=== PATIENT | male | born 1955 | race Caucasian/White ===

== ENCOUNTER 2018-07-17 09:19 | Emergency (ER) | payer OTHER, SELFPAY ==
[2018-07-17 09:20] VITALS: BP 172/91; PULSE 73; RESP 18; TEMP 36.8; O2SAT 97; BMI 27.3
--- NOTE | 2018-07-17 09:40 | CT_ITS ---
STUDY: CT CERVICAL SPINE WITHOUT CONTRAST REASON FOR EXAM: Male, 62 years old. Injury RADIATION DOSAGE (If Supplied By Facility): CTDIvol = ( 23.57 ) mGy, DLP = ( 407.56 ) mGycm TECHNIQUE: High resolution transaxial imaging was performed without contrast material. Sagittal and coronal images were reconstructed. Individualized dose optimization techniques were used for this CT. COMPARISON: None FINDINGS: Normal craniovertebral junction. Normal anterior atlantoaxial articulation. Normal odontoid process. Normal cervical lordosis. Normal vertebral bodies and posterior osseous elements. C2-3: Normal endplates. Normal disc height and morphology. Normal central canal and intervertebral neuroforamina. 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 C4-5: Normal endplates. Normal disc height and morphology. Normal central canal and intervertebral neuroforamina. C5-6: Normal endplates. Normal disc height and morphology. Normal central canal and intervertebral neuroforamina. C6-7: There is loss of disc space height with mild endplate spondylosis (image 30/57 sagittal recon). C7-T1: Normal endplates. Normal disc height and morphology. Normal central canal and intervertebral neuroforamina. Normal visualized soft tissue structures. CT/Spine Cervical without Contras IMPRESSION: No fracture No disc herniation or spinal stenosis Electronically Signed: Zackary Mendieta MD at 11:25 EDT Tel , Service support ,
--- NOTE | 2018-07-17 09:40 | CT_ITS ---
STUDY: CT ABDOMEN AND PELVIS WITHOUT CONTRAST REASON FOR EXAM: Male, 62 years old. Abdominal pain after falling off a roof 8 feet on July 16, 2018. The patient also has back pain and dark-colored urine. RADIATION DOSAGE (If Supplied By Facility): CTDIvol = ( 18.58 ) mGy, DLP = ( 1721.13 ) mGycm TECHNIQUE: Transaxial images were obtained from the dome of the diaphragm to the symphysis pubis without oral contrast, and without intravenous contrast. Sagittal and coronal images were reconstructed. Individualized dose optimization techniques were used for this CT. COMPARISON: Prior comparison studies are not available for review at this time. FINDINGS: There is patchy bilateral basilar airspace consolidation possibly representing sequela pulmonary contusion and pulmonary hemorrhage. There may be some atelectasis as well. The visualized heart is mildly enlarged. There is decreased attenuation of the liver consistent with steatosis. Normal gallbladder and extrahepatic biliary system. There is mild splenomegaly. Spleen measures up to 14.8 cm in cephalocaudal dimension. Normal pancreas. Normal bilateral adrenal glands. Right kidney has a well-circumscribed low-attenuation lesion arising from lower pole of the right kidney measuring approximately 2.2 cm in greatest dimension. This has attenuation of approximately 14.3 Hounsfield units consistent with a simple cyst. There is a second a cyst arising from lower pole the right kidney measuring 2.6 cm in greatest dimension. There is a tiny lucency within lower pole of left kidney that may represent a tiny laceration. There is a small hiatal hernia. There is no evidence for dilated bowel, ascites or pneumoperitoneum. Small bowel has a grossly normal appearance. There also still appears to be in the ascending colon. There is gaseous distention of the colon. The descending colon is not distended which gives the appearance of thickened russ as well as the sigmoid colon. Scattered diverticula are visible. The appendix is visualized and appears normal. Normal abdominal aorta. Normal inferior vena cava. Normal retroperitoneum. Normal urinary bladder. Normal visualized prostate gland. There is an umbilical hernia containing fat. There is a left inguinal hernia containing fat. There is moderately severe multilevel thoracic and lumbar spondylosis. There are large bridging osteophytes anterior to the right sacroiliac joint with possible ankylosis. CT/Abdomen/Pelvis W IV Cont ONLY IMPRESSION: 1. Bilateral basilar airspace consolidation and/or atelectasis. Differential considerations include pulmonary contusion and pulmonary hemorrhage. 2. Questionable small left renal laceration of the lower pole. 3. Hepatic steatosis. 4. Mild splenomegaly. 5. Right-sided renal cysts. 6. Colonic diverticulosis. 7. Small hiatal hernia. Electronically Signed: Tabby Rivera MD at 11:48 EDT , Service support ,
--- NOTE | 2018-07-17 09:40 | CT_ITS ---
STUDY: CT CHEST WITH CONTRAST REASON FOR EXAM: Male, 62 years old. Status post fall from 8 foot roof July 16 RADIATION DOSAGE (If Supplied By Facility): CTDIvol = ( 18.58 ) mGy, DLP = ( 1721.13 ) mGycm TECHNIQUE: Transaxial imaging was performed following intravenous administration of 100ML ml of Isovue 300 contrast material. Multiplanar coronal and sagittal images were reformatted. Individualized dose optimization techniques were used for this CT. COMPARISON: CT scan abdomen and pelvis July 17, 2018 FINDINGS: There is a small focus of right lower lobe consolidation. There is a small focus of left lower lobe atelectasis. There is no demonstrated pleural abnormality. There is mild cardiac enlargement. There is trace coronary calcification. Is a nonspecific right-sided paratracheal lymph node measuring 8.8 mm. Normal hilar regions. Normal enhanced pulmonary arteries. Normal aorta arch and descending thoracic aorta. There are multi-level degenerative changes of the thoracic spine. This study extends to the level of approximately T11. There is a well-circumscribed cystic structure within the left hepatic lobe measuring 7.5 mm. There is a small hiatal hernia. Further discussion of the CT scan of the abdomen and pelvis will be provided with a dedicated CT scan of the abdomen and pelvis performed today. There is hepatic steatosis. For Numbering purposes, There are acute fractures of T12-L1 with a transitional vertebral body at L5-S1. There is an acute fracture at the level of L1 with a fracture line seen on image #42 of the axial views coursing along the anterior aspect of the superior endplate with trace loss of height. There is a subtle suggestion of a fracture of the right pedicle on sagittal image #75. There is also a age in determinant step off within the superior aspect of the spinous process at the level of L1. In the left anterior edge of the vertebral body there is a fracture line seen in the level of T12 image #86 sagittal view compatible with a anterior wedge compression fracture. There is a subtle fracture of the right transverse process at L2. CT/Chest WITH Contrast IMPRESSION: There is a small focal right lung base consolidation consider in this setting pulmonary contusion and or potentially atelectasis or early developing infiltrates. Small focus of left lower lobe atelectasis. There is hepatic steatosis. Please refer to CT scan of the abdomen and pelvis or further discussion of the upper abdomen. For Numbering purposes, There are acute fractures of T12-L1 with a transitional vertebral body at L5-S1. There is an acute fracture at the level of L1 with a fracture line seen on image #42 of the axial views coursing along the anterior aspect of the superior endplate with trace loss of height. There is a subtle suggestion of a fracture of the right pedicle on sagittal image #75. There is also a age in determinant step off within the superior aspect of the spinous process at the level of L1. In the left anterior edge of the vertebral body there is a fracture line seen in the level of T12 image #86 sagittal view compatible with a anterior wedge compression fracture. There is a subtle fracture of the right transverse process at L2. Given that the L1 vertebral body may involve 3 columns, recommend follow-up MRI of the thoracolumbar junction to noting that the patient has a transitional type vertebral body. N.B. : The above information has been verbally conveyed by Noemi Mcknight MD to Dr. Nicole MD, on 07/17/2018 12:27:18 (ET). Electronically Signed: Noemi Mcknight MD at 12:17 EDT Tel , Service support ,
--- NOTE | 2018-07-17 09:40 | CT_ITS ---
STUDY: CT BRAIN WITHOUT CONTRAST REASON FOR EXAM: Male, 62 years old. Closed head injury after falling 8 feet off a roof. RADIATION DOSAGE (If Supplied By Facility): CTDIvol = ( 44.99 ) mGy, DLP = ( 863.60 ) mGycm TECHNIQUE: Transaxial CT imaging of the brain was performed without administration of intravenous contrast material. Multiplanar reformations are submitted for interpretation. Individualized dose optimization techniques were used for this CT. COMPARISON: Prior comparison studies are not available for review at this time. FINDINGS: Normal soft tissue structures. Normal calvarium. There is mild cerebral atrophy with widening of the extra-axial spaces and ventricular dilatation. Normal white matter tracts of the cerebral hemispheres. Normal basal ganglia and thalami. Normal brainstem. Normal cerebellum. There is no intracranial hemorrhage. There is minimal atherosclerotic calcification of the intracranial arteries. There is a small left maxillary mucous retention cyst. CT/Brain/Head without Contrast IMPRESSION: No CT evidence of acute intracranial hemorrhage. Electronically Signed: Tabby Rivera MD at 11:37 EDT , Service support ,
[2018-07-17 10:34] LABS: Absolute Lymphocyte Count 0.82 X10^3/ul (0.83-4.51); Absolute Neutrophil Count 10.9 X10^3/uL (2.0-7.7); Basophil# 0.01 X10^3/uL; Basophil% 0.1 % (0-1); Eosinophil# 0.05 X10^3/uL; Eosinophils% 0.4 % (0-5); Hematocrit 44.2 % (40-54); Hemoglobin 14.8 g/dl (13.0-16.5); Lymphocyte # 0.82 X10^3/ul (4.0); Lymphocyte % 6.2 % (19-41); Mean Corp Hgb Conc 33.5 g/gl (32-36); Mean Corpuscular Hgb 30.8 pg (27.0-32.0); Mean Corpuscular Volume 91.9 fL (80-94); Mean Platelet Vol. 9.1 fl (6.2-12.0); Monocyte# 1.33 X10^3/uL; Monocyte% 10.1 % (0-10); Neutrophil # 10.88 X10^3/uL (2.7-7.7); Neutrophil % 82.4 % (47-70); POSITIVE COUNT NO; POSITIVE DIFFERENTIAL NO; POSITIVE MORPHOLOGY NO; Platelet Count 236 K/mm3 (150-450); RBC Distribution Width CV 13.8 % (11.6-14.6); RBC Distribution Width SD 45.8 fl (35.1-43.9); Red Blood Count 4.81 M/mm3 (4.6-6.2); White Blood Count 13.2 K/mm3 (4.4-11.0)
[2018-07-17] MEDS: Morphine 4 MG/ML Syringe IV ×2 (10:37→12:59)
[2018-07-17] MEDS: Ondansetron 4 MG/2 ML Vial IV (10:37)
[2018-07-17 10:40] LABS: Prothrombin Time (Protime)PT. 13.3 SECONDS (11.7-14.9)
[2018-07-17 10:48] LABS: ALB/GLOB Ratio 1.1 RATIO (0.9-2.4); AST(SGOT) 34 U/L (15-37); Alanine Aminotransfer ALT/SGPT 51 U/L (16-61); Albumin, Serum 3.8 g/dL (3.2-5.0); Alkaline Phosphatase 96 U/L (45-117); Anion Gap 6 (5-15); BUN 15 mg/dL (7-18); BUN/Creat Ratio 15.8 RATIO (10-20); Calcium,Total 8.8 mg/dL (8.5-10.1); Chloride 109 mmol/L (98-107); Creatinine, Serum 0.95 mg/dL (0.70-1.30); EST Glomerular Filtration Rate 86 mL/min (>60); Est Glom Filt Rate - Afr Amer 104 mL/min (>60); Globulin 3.6 g/dL (2.2-4.2); Glucose 112 mg/dL (74-106); Potassium 4.2 mmol/L (3.5-5.1); Protein, Total 7.4 g/dL (6.4-8.2); Sodium Level 144 mmol/L (136-145)
[2018-07-17 10:51] LABS: Alcohol, Blood (Medical)-Serum < 3.0 mg/dL
[2018-07-17 12:30] VITALS: BP 160/79; PULSE 65; RESP 18; O2SAT 98
--- NOTE | 2018-07-17 12:37 | ED.RN ---
CALLED [facility] TO TRANSFER PATIENT. DR. DICKERSON SPOKE WITH ED DOC.
--- NOTE | 2018-07-17 12:43 | ED.DCSUM_ITS ---
- ER Visit Summary Date of Service: 07/17/18 Chief Complaint: Fall History of Present Illness: The patient is a 62 M who presents after a fall. Roughly 17 hours before presentation here he fell off of the first story roof. He states that he believes he slipped but does not really remember either before or after. Family member states that they found him laying flat on his back and initially unresponsive. He does admit to 4 beers yesterday. EMS was called and he refused transport. Today he complains of worsening back pain and dark urine so presented here. No urinary retention or fecal incontinence no numbness weakness or tingling in the legs. He denies any chest pain shortness of breath or anterior abdominal pain. Physical Examination: Blood pressure 172/91 vitals otherwise normal Pupils are equally round reactive to light Extra ocular motion intact Neck is nontender Heart regular rate and rhythm Lungs are clear Abdomen soft nontender nondistended Patient does have midline spinal tenderness and paraspinal tenderness of the lower thoracic and upper lumbar regions Active full range of motion ?4 extremities GCS of 15 with no focal or lateralizing neurological deficits normal strength and sensation of the lower extremities with 5 out of 5 dorsiflexion, plantarflexion, extensor hallucis longus Test Results: Labs notable for white count 13.2. Coagulation studies normal. Alcohol negative. CTs of the head and C-spine chest abdomen and pelvis were obtained. These are notable for possible small bilateral pulmonary contusions and there are acute fractures of T12 through L1. There is also a likely small left renal laceration. Emergency Department Course and Treatment: The radiologist spoke to me and put in her report the details of the fractures however she was concerned for possible 3 column fracture of L1 and noted that he will need an MRI to rule out cord injury. He does not have any neurological deficits at this time. Patient was discussed with the emergency physician at [facility] and will be transferred as a trauma. The patient will be placed in spinal immobilization for transport. Although he likely a small bilateral pulmonary contusions his pulse oximetry is normal and he is hemodynamically stable. Treatment Plan: [] Disposition: Transfer Impression: Closed head injury T12 and L1 fractures Renal laceration Bilateral pulmonary contusion This note was generated with [employer] dictation software. It may contain incorrect words, spelling, and punctuation that were not noted in review of the chart prior to signing ED Disposition - Plan for ED Patient: Chief Complaint: Fall Referrals: Care Physician,No Primary [Primary Care Provider] -
[2018-07-17 12:54] VITALS: BP 145/71; PULSE 69; RESP 18; O2SAT 97
[2018-07-17 13:02] VITALS: BP 155/86; PULSE 71; RESP 16; O2SAT 97
== END 2018-07-17 13:34 | disposition short-term general hospital (02) ==
LOC: ED 10:11
PROVIDERS: Emergency Provider Emergency Medicine
DX: S27.322A Contusion of lung, bilateral, initial encounter (principal); S37.032A Laceration of left kidney, unspecified degree, initial encounter; S22.089A Unspecified fracture of T11-T12 vertebra, initial encounter for closed fracture; S32.019A Unspecified fracture of first lumbar vertebra, initial encounter for closed fracture; W13.2XXA Fall from, out of or through roof, initial encounter; Y93.9 Activity, unspecified; Y92.9 Unspecified place or not applicable; Y99.9 Unspecified external cause status
CPT/HCPCS: 70450; 71260; 72125; 74177; 80053; 80320; 85025; 85610; 96374; 96375; 96376; 99282; J7030; Q9967; A4216; G0480; J2405

== ENCOUNTER → 2018-08-30 12:16 | Outpatient (CLI) | payer OTHER, SELFPAY ==
--- NOTE | 2018-08-30 12:20 | CT_ITS ---
STUDY: CT LUMBAR SPINE WITHOUT CONTRAST REASON FOR EXAM: Male, 62 years old. Low back pain and follow-up RADIATION DOSAGE (If Supplied By Facility): CTDIvol = ( 30.00 ) mGy, DLP = ( 989.63 ) mGycm TECHNIQUE: The patient was scanned in a multi detector CT scanner. High resolution transaxial imaging was performed. Images were obtained from T11 to sacrum. Sagittal and coronal images were reconstructed. Individualized dose optimization techniques were used for this CT. COMPARISON: July 17, 2018 CT scan abdomen and pelvis FINDINGS: Normal lumbar lordosis. There is no substantial scoliosis. There is a transitional vertebral body at the level of L5/L6 with a rudimentary disc.. There are 5 lumbar-type vertebral bodies present. On sagittal view if the last or most caudal vertebral body is considered transitional or L6 numbering to match the prior findings is obtained. There is slight chronic-appearing compression at the level of L4. There is a greater compressed appearance of the endplate at the level of L1 when compared to the prior study. There is greater sclerosis and greater vacuum phenomenon. There is a 10% loss of height. At the level of T12 there is persistent loss of height and irregular appearance of the endplate with the least and now 20% loss of height. There is a healing fracture of the right transverse process of L2. There may be a subtle healing fracture of the superior aspect of the spinous process at the level of L1. At T12-L1 there is visualized fracturing of the superior endplate at the level of L1. There is minimal neural foraminal narrowing and no significant central stenosis L1-2: There is bridging osteophytosis. There is no significant neural foramina narrowing to suggest stenosis. L2-3: There is anterior osteophyte formation without neural foramina narrowing suggests stenosis. L3-4: There is anterior osteophyte formation. There is a minimal broad disc bulge without significant neural foramina narrowing or central stenosis. L4-5: There is a minimal broad disc bulge without neural foramina narrowing or central stenosis. L5-S1: There is a minimal broad disc bulge without neural foramina narrowing or central stenosis. There is a rudimentary disc at the transitional vertebral body at S1-S2/L6 S1. Normal visualized paraspinous soft tissue structures. CT/Spine Lumbar without Contrast IMPRESSION: 20% compression at the level of T12. 10% compression at the level of L1. Healing fracture of the right-sided transverse process at L2. Age-indeterminate slight loss of height at L4. . Could consider follow-up MRI if clinically appropriate. Electronically Signed: Noemi Mcknight MD at 19:41 EST Tel , Service support ,
== END ==
DX: S32.010D Wedge compression fracture of first lumbar vertebra, subsequent encounter for fracture with routine healing (principal); X58.XXXD Exposure to other specified factors, subsequent encounter
CPT/HCPCS: 72131

== ENCOUNTER → 2018-10-07 09:37 | Outpatient (CLI) | payer OTHER, SELFPAY ==
--- NOTE | 2018-10-07 09:42 | RAD_ITS ---
STUDY: X-RAY - LUMBAR SPINE REASON FOR EXAM: Male, 63 years old. HX COMPRESSION FX TECHNIQUE: 4 view(s) of the lumbar spine were obtained. COMPARISON: CT dated August 30, 2018 FINDINGS: There is a transitional morphology. Normal lumbar lordosis. There is no demonstrated spondylolisthesis. Again noted are the mild compression fractures at T12, L1 and L4 There is multilevel endplate spondylosis of the lumbar vertebrae. There is multi-level degenerative disc disease with multi-level disc space narrowing. The soft tissue structures are unremarkable. RAD/L/S Spine Bending Flex/Ext IMPRESSION: Stable chronic fractures at T12, L1 and L4 Electronically Signed: Anastasia Lechuga MD at 8:04 EST Tel , Service support ,
--- OUTSIDE RECORDS SUMMARY | 2018-11-23 03:21 | XMS RPT_ITS ---
:1955 Author Organization OHIP Care Team Providers Name Role Phone GOY[place] Attending Unavailable GOYO BAY Referring Unavailable Primay Care Physicia, No Primary Care Unavailable Rosales Rivera Attending Unavailable Primay Care Physicia, No Primary Care Unavailable GOY[place]AY Attending Unavailable GOY[place] BAY Referring Unavailable Primay Care Physicia, No Primary Care Unavailable [place] Consulting Unavailable LEUKHARDT, KHADIJAH H Admitting Unavailable LEUKHARDT, KHADIJAH H Attending Unavailable KHAYYAT, BLANCO F Consulting Unavailable LEUKHARDT, KHADIJAH H Admitting Unavailable LEUKHARDT, KHADIJAH H Attending Unavailable Khayyat, Blanco F. Consulting Unavailable Khayyat, Blanco F. Referring Unavailable PROBLEMS PROBLEMS DATE TYPE CONDITION / CODE ATTENDING STATUS SOURCE 10/07/2018 Unknown S22.080A - [place] Active [facility] T11-T12 vertebra, Repository initial encounter for closed fracture / S22.080A(ICD-10) 08/30/2018 Unknown S32.010D - [place] Active [place] [facility] lumbar vertebra, Repository subsequent encounter for fracture with routine healing / S32.010D(ICD-10) 07/19/2018 Active Unspecified LEUKHARDT, Active [facility] fracture of [facility] unspecified Repository thoracic vertebra, subsequent encounter for fracture with routine healing / S22.009D(ICD-10) 07/17/2018 Active Unspecified LEUKHARDT, Active [facility] fracture of [facility] Other [place] unspecified Repository lumbar vertebra, initial encounter for closed fracture / S32.009A(ICD-10) 07/19/2018 Admitting Unknown / LEUKHARDT, Active [facility] diagnosis UNK(Unknown) [facility] Repository PROCEDURES PROCEDURES No Procedure Records FoundRESULTS RESULTS L/S SPINE BENDING Observed: 10/07/2018 Status: F Source: [place] FLEX/EXT 9:42 AM [facility] REPOSITORY [facility] Imaging Services [address] [place] [address] L/S Spine Bending Flex/Ext MR#: [id number] Acct: [id number] Name: KOSTAGHADA Delia Rep #: [id number] : 1955 63 From: Anastasia Lechuga PCP: Care Physician, No Primary Status: REG CLI Study: L/S Spine Bending Flex/Ext Date of Exam: 10/07/18 Exam# [id number] Ordering Dr: BLANCO MACIAS STUDY: X-RAY - LUMBAR SPINE REASON FOR EXAM: Male, 63 years old. HX COMPRESSION FX TECHNIQUE: 4 view(s) of the lumbar spine were obtained. COMPARISON: CT dated August 30, 2018 FINDINGS: There is a transitional morphology. Normal lumbar lordosis. There is no demonstrated spondylolisthesis. Again noted are the mild compression fractures at T12, L1 and L4 There is multilevel endplate spondylosis of the lumbar vertebrae. There is multi-level degenerative disc disease with multi-level disc space narrowing. The soft tissue structures are unremarkable. RAD/L/S Spine Bending Flex/Ext IMPRESSION: Stable chronic fractures at T12, L1 and L4 Electronically Signed: Anastasia Lechuga MD at 8:04 EST Tel , Service support , CC: No Primary Care Physician; BLANCO MACIAS Sod Stripper: Signed SPINE LUMBAR WITHOUT Observed: 08/30/2018 Status: F Source: [place] CONTRAST 12:20 PM [facility] REPOSITORY [facility] Imaging Services [address] [place] [address] Spine Lumbar without Contrast MR#: [id number] Acct: [id number] Name: GHADA BRAMBILA Rep #: [id number] : 1955 M 62 From: Noemi Mcknight MD PCP: Care Physician, No Primary Status: REG CLI Study: Spine Lumbar without Contrast Date of Exam: 08/30/18 Exam# [id number] Ordering Dr: BLANCO MACIAS STUDY: CT LUMBAR SPINE WITHOUT CONTRAST REASON FOR EXAM: Male, 62 years old. Low back pain and follow-up RADIATION DOSAGE (If Supplied By Facility): CTDIvol = ( 30.00 ) mGy, DLP = ( 989.63 ) mGycm TECHNIQUE: The patient was scanned in a multi detector CT scanner. High resolution transaxial imaging was performed. Images were obtained from T11 to sacrum. Sagittal and coronal images were reconstructed. Individualized dose optimization techniques were used for this CT. COMPARISON: July 17, 2018 CT scan abdomen and pelvis FINDINGS: Normal lumbar lordosis. There is no substantial scoliosis. There is a transitional vertebral body at the level of L5/L6 with a rudimentary disc.. There are 5 lumbar-type vertebral bodies present. On sagittal view if the last or most caudal vertebral body is considered transitional or L6 numbering to match the prior findings is obtained. There is slight chronic-appearing compression at the level of L4. There is a greater compressed appearance of the endplate at the level of L1 when compared to the prior study. There is greater sclerosis and greater vacuum phenomenon. There is a 10% loss of height. At the level of T12 there is persistent loss of height and irregular appearance of the endplate with the least and now 20% loss of height. There is a healing fracture of the right transverse process of L2. There may be a subtle healing fracture of the superior aspect of the spinous process at the level of L1. At T12-L1 there is visualized fracturing of the superior endplate at the level of L1. There is minimal neural foraminal narrowing and no significant central stenosis L1-2: There is bridging osteophytosis. There is no significant neural foramina narrowing to suggest stenosis. L2-3: There is anterior osteophyte formation without neural foramina narrowing suggests stenosis. L3-4: There is anterior osteophyte formation. There is a minimal broad disc bulge without significant neural foramina narrowing or central stenosis. L4-5: There is a minimal broad disc bulge without neural foramina narrowing or central stenosis. L5-S1: There is a minimal broad disc bulge without neural foramina narrowing or central stenosis. There is a rudimentary disc at the transitional vertebral body at S1-S2/L6 S1. Normal visualized paraspinous soft tissue structures. CT/Spine Lumbar without Contrast IMPRESSION: 20% compression at the level of T12. 10% compression at the level of L1. Healing fracture of the right-sided transverse process at L2. Age-indeterminate slight loss of height at L4. . Could consider follow-up MRI if clinically appropriate. Electronically Signed: Noemi Mcknight MD at 19:41 EST Tel , Service support , CC: No Primary Care Physician; BLANCO MACIAS Sod Stripper: Signed CNDS Observed: 07/19/2018 Status: COMPLETED Source: [place] 4:07 PM [facility] OTHER CAMPUS REPOSITORY HNO ID: [id number] Author: Rosales Gibbons (Pa) Service: Trauma Author Type: Physician Raw Stock Dyeing Machine Tender Type: Discharge Summaries Filed: 07/19/2018 4:08 PM Note Text: DISCHARGE SUMMARY PATIENT NAME: Ghada Brambila Code Status: Not on file Highest Readmission Risk Score: 13 The 30 day readmissions risk score is derived from an internally validated risk model which evaluates patient level characteristics, utilization history, medication orders and lab results up until the day of discharge. Patients with a score of 40 or above are considered highest risk for readmission. Specific patient level drivers will be listed at the bottom of the summary. Admission Information Admission Information ADMIT DATE: 07/17/2018 DISCHARGE DATE: 07/19/2018 MY DOCTORS AND MEDICAL TEAM: My Main Hospital Doctor: Khadijah Ovalle Primary Care Provider: No primary care provider on file. My Medical Team Members: Treatment Team: Attending Provider: Khadijah Ovalle MY CONDITION AT DISCHARGE: Stable REASON I WAS IN THE HOSPITAL: Treatment of injuries sustained after a fall off a ladder. SUMMARY OF WHAT HAPPENED WHILE I WAS IN THE HOSPITAL: Patient was seen as a Level II trauma in the ED as a transfer from [facility] on 07/17/18. Patient reportedly had fallen off a ladder the day prior to arrival and initially declined going to the ED despite EMS recommendations. Imaging studies from [facility] were reviewed by the trauma team indicating possible small left kidney laceration and non-displaced fractures of the anterior superior aspect of the T12 vertebrae, superior endplate of L1, R pars interarticularis of T11, right pedicle of T12 and right tranverse process of L2. Patient was admitted to the regular nursing floor for continued monitoring and medical management. Patient was evaluated by the neurosurgery team who recommended non-surgical management of the vertebral fractures. 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 Patient was ordered a TSLO brace for comfort and standing X-Rays were completed after brace fitting which demonstrated stable fractures. Patient was re-evaluated by the neurosurgery team and determined stable for discharge with outpatient follow-up. Patient remained hemodynamically stable during admission. He tolerated a diet and was evaluated by the physical and occupational therapy teams who recommended assistance with a wheeled walker for balance, but ultimately discharge home with self care and exercises as discussed. Patient was seen by the trauma attending surgeon and determined medically stable for discharge home 07/19/2018 with appropriate outpatient follow-ups. OTHER PROBLEMS/DIAGNOSIS: Active Problems: Lumbar compression fracture (HCC) Nicotine use disorder, F17.2 Closed traumatic compression fracture of thoracic vertebra, with routine healing, subsequent encounter Resolved Problems: Fall from ladder OPERATIONS PERFORMED WHILE IN THE HOSPITAL: None IMPORTANT TEST/PROCEDURES: No procedures performed TEST RESULTS NOT AVAILABLE AT THIS TIME: No pending results Discharge Disposition Discharge Disposition: Home With Self Care Activity When You Leave the Hospital Do not bend over at the waist to lift heavy objects May walk with a walker No driving for: Until cleared by the neurosurgeon No exercise for: You may participate in activities as discussed with the physical therapy team. Activity may be advanced per the neurosurgeon's recommendations. No prolonged bedrest, longer than 8 hours in a 24 hour period Diet Instructions Resume your pre-hospital diet For Pain When You Leave the Hospital If you become constipated, you may use any qnmv-paq-kqjtoah treatment such as Milk of Magnesia, Sennakot, Prune Juice, Suppositories, etc. in addition to the stool softener/fiber supplement No alcohol or driving while on pain medication Use acetaminophen (Tylenol) as recommended on the bottle Use the dispensed medication (see prescription) You should use an sqne-qll-edvlmwk stool softener (Docusate sodium) and/or a fiber supplement (Metamucil, Fiber Con) every day while taking prescribed pain medication Call Your Doctor If Other: Go to the ED if you develop worsening back pain, numbness/tingling of the legs or feet, a sensation of weakness in your legs, or loss of bowel or bladder function. You have a severe headache You have lightheadedness, fainting, or confusion You have persistent nausea/vomiting over 24 hours Your temperature is greater than 101F Follow Up Appointments Follow-Up Appointment Neurosurgeon: Please contact the neurosurgeon's office to schedule your follow-up appointment for three weeks following your discharge from the hospital. When: In 3 weeks Patient/Parents to call for appointment?: Yes Blanco Macias [phone] [place] [address] PCP Requested Referral Additional Provider to Provider Information: No notes on file Transitions of Care Critical Issues: NA LABS AND PROCEDURES PENDING AT DISCHARGE: No pending results. FOLLOW-UP APPOINTMENTS ALREADY SCHEDULED WITH A [facility] PROVIDER: No future appointments. ALLERGIES No Known Allergies DISCHARGE MEDICATION: Current Discharge Medication List START taking these medications acetaminophen (TYLENOL) 650 mg Take 650 mg by mouth every 6 hours. oxyCODONE IR (ROXICODONE) 5 mg Take 5 mg by mouth every 6 hours as needed. Earliest Fill Date: 07/19/18 Qty: 16 tablet Refills: 0 Associated Diagnoses:Closed fracture of lumbar vertebra, unspecified fracture morphology, unspecified lumbar vertebral level, initial encounter ([facility]); Closed traumatic compression fracture of thoracic vertebra, with routine healing, subsequent encounter senna (SENOKOT) 8.6 mg Take 8.6 mg by mouth twice daily. methocarbamol (ROBAXIN) 1,000 mg Take 1,000 mg by mouth three times daily. Qty: 21 tablet Refills: 0 See daily progress note for examination findings The patient's risk for 30-day readmission is determined using the following contributing factors: Pt variables contributing to increased readmission risk: 17 Most Recent BUN Result 8.4 First Resulted Calcium During Admission 8 Active Medication Orders 1 Previous ED Visit (6 mos.)? 1 Number of Previous ED Visits (6 mos.) 1 Insurance - Medicare 1 Discharge Disposition - Home 1 Active Anticoagulant TIME OF CARE: Discharge Management: I personally spent less than 30 minutes involved in the discharge management of this patient. SIGNATURE: Rosales Gibbons PA-C PAGER/CONTACT #: DATE: July 19, 2018 TIME: 4:07 PM THERAPY NT Observed: 07/19/2018 Status: COMPLETED Source: [place] 1:46 PM CLINIC OTHER CAMPUS REPOSITORY O ID: [id number] Author: Radha Diaz Service: Physical Therapy Author Type: Tax Expert Type: Therapy (PT/OT/Speech/Resp) Filed: 07/19/2018 1:55 PM Note Text: Attestation signed by Melanie Heath PT at 07/19/2018 3:28 PM I reviewed and agree with the documentation corresponding to this therapy visit. SIGNATURE: Melanie Heath PT DATE: July 19, 2018 TIME: 3:28 PM Physical Therapy Treatment SERVICE DATE: 07/19/2018 SERVICE TIME: 1315 to 1340 ROOM: [place] [address] Recommended Discharge Disposition: Home Anticipated Discharge Needs: Physical Assist at Home;Supervision at Home;Equipment Physical Assist at Home for: Cleaning;Laundry;Meals;Transportation;Shopping;Self Care Supervision at Home due to: (medical status change) Recommended Discharge Equipment: Wheeled Walker PT Recommendations to Nursing: Ambulate with device;To bathroom;In halls;With assist of 1 person Device: Brace;Wheeled Walker PT 6 Clicks Score: 23 Precautions/Activity Restrictions: Fall Risk;Spine;Brace Precaution/Activity Restriction Comments: TLSO Isolation Type: None ASSESSMENT : Patient Disposition at Start of Session: Supine in Bed;Call Goff in Reach;Family Present Patient Disposition at End of Session: Supine in Bed;Call Goff in Reach;Family Present Tolerated Full Session Patient made improvement this session with all aspects of mobility. Patient and spouse voiced good understanding of spine precautions, TLSO brace and mobility task. Reports that they will need a wheel walker for discharge to home. Physical Therapy Problem List: Education Deficit;Pain;Safety Deficits;Impaired Self Care;Decreased Activity Tolerance;Decreased Range Of Motion;Decreased Strength;Functional Mobility Impairment;Balance Impaired Patient /Caregiver Goals: Go Home;Walk Goals for Plan of Care: Able to perform HEP with: Set Up (3 x 10 LE exercises) Rolling with: Modified Independent Transfer supine to/from sit with: Modified Independent Transfer sit to/from stand with: Modified Independent Ambulate with: Modified Independent Distance: 50' intervals Device: Wheeled Walker Ambulate up and down steps with: Supervision Number of steps: 1 platform step Device: (using FWW) Transfer: stand-pivot with mod I Progress Toward Goals: Progressing as expected Rehab Potential: Good PLAN: Treatment Frequency (times per week): 7 (3-7) Current admission Treatment Interventions: Education;Self Care / Home Management;Strengthening;Functional Mobility Training;Balance Training;Modalities;Orthotic Management and Training Modalities: Ice Plan of Care developed with: Patient;Family TREATMENT INTERVENTIONS: Therapy Diagnosis: Difficulty walking-musculoskeletal;Unsteadiness on feet Interventions Provided: Therapeutic Activity (43601);Gait Training (64215) Therapeutic Activity (17917) Treatment Minutes: 15 1 unit Skilled Intervention(s): Instructed patient in log roll technique, Instructed patient in supine to and from sit pushing with upper extremities to sit up from flat surface. Movement is slow with cues to avoid twisting. Instruction in sit to and from stand technique with proper hand placement and body positioning at edge of bed. Patient completed 2 trials with emphasis on proper hand placement and eccentric control. Education with spine precautions (no bending, lifting restriction, no twisting) and don/doff of TLSO brace. Patient requires min assist and cues to proper alignment of brace. Spouse present and observed with brace, denied need to practice. Gait Training (36000) Treatment Minutes: 10 1 unit Skilled Intervention(s): Instruction in sequencing, gait pattern, Instruction in correction of gait deviations. Patient ambulates with slow pace, with decrease in foot clearance and stride length. Patient with buckling of knees 2x's due to spasms but able to self-correct. Instruction in stair negotiation: using step to pattern with rails. Curbstep using wheel walker with step to pattern. Cues to get closer to edge of step before going up or down step. Total Timed Code Treatment Minutes: 25 Total Treatment Time (minutes): 25 SUBJECTIVE: Current Hospital Course: Chart reviewed and no significant medical updates relevant to therapy were noted Reason for Physical Therapy Consult : PT eval AND treat, ambulate in TLSO Relevant Past Medical History: fall from ladder, spine fx's Patient Report: Denied increase in pain voiced no new complaints. Home Environment Patient Lives With: Significant Other (several family members present on eval, very supportive) Assistance Available: 24 Hour Entry To Home: Stairs;Without Rail (platform steps) Number Of Stairs Into Home: 3 (platform steps) Number Of Stairs To Bed/Bath: 0 Tub/Shower Type: tub/shower Laundry: main floor Equipment Owned: (None) Prior Functional Level: Within Functional Limits (indep, working, driving, active, denies prior falls) OBJECTIVE: CURRENT FUNCTIONAL STATUS: Current Functional Mobility Assist Level Additional Information Rolling Stand By Assistance Supine to Sit Stand By Assistance Sit to Supine Stand By Assistance Scooting Stand By Assistance Sit to Stand Stand By Assistance Stand to Sit Stand By Assistance Bed to Chair Toilet/Commode Gait Stand By Assistance Gait Device: Wheeled Walker Gait Distance (feet): intervals of 50-60ft Stairs Contact Guard Assistance Stairs Device: Rail Number of Stairs: 4 Curb Step Contact Guard Assistance Wheeled Walker Car Transfer General Gait Deviations: Dara decreased;Flexed trunk posture;Step length decreased;Narrow Base of Support ((+) LE buckling, heavy support needed using UEs on device) Balance: Static Standing;Dynamic Standing Static Standing Balance: Stand By Assistance Dynamic Standing Balance: Minimal Assistance Please see discipline specific clinical documentation flowsheet for complete details for this therapy evaluation/treatment. SIGNATURE: Radha Diaz PTA PATIENT NAME: Ghada Brambila DATE: July 19, 2018 TIME: 1:46 PM PROGRESS Observed: 07/19/2018 Status: COMPLETED Source: [place] 1:37 PM CLINIC OTHER [place] REPOSITORY HNO ID: [id number] Author: HILARIO Franco (Pa) Service: Neurosurgery Author Type: Physician Raw Stock Dyeing Machine Tender Type: Progress Notes Filed: 07/19/2018 1:40 PM Note Text: Pt now with brace. Feels like it's helping. Pain controlled. Ambulating, voiding and eating. msp grossly intact Wear brace when at all times but to sleep Ok to d/c by neurosurg standpoint F/u in 3 wks with HILARIO Laurent PROGRESS Observed: 07/19/2018 Status: COMPLETED Source: [place] 11:45 AM CLINIC OTHER [place] REPOSITORY HNO ID: [id number] Author: Rosales Gibbons (Pa) Service: Trauma Author Type: Physician Raw Stock Dyeing Machine Tender Type: Progress Notes Filed: 07/19/2018 12:06 PM Note Text: Trauma Surgery Progress Note SERVICE DATE: 07/19/2018 SUBJECTIVE: Patient doing well this am. Pain controlled. Tolerating diet. Wearing TSLO brace. Notes that he has gotten up a few times with minimal back discomfort, just notes feeling a little off balance at first. Denies numbness or tingling of the lower extremities. Denies CP, SOB, abdominal pain, N/V. Tolerating diet. Tolerating diet DIET REGULAR Nausea Yes Emesis No Flatus Yes Bowel movement No Pain Controlled Yes Ambulating Yes OBJECTIVE: Vitals: Temp (24hrs), Av.8 ?C (98.2 ?F), Min:36.4 ?C (97.5 ?F), Max:37.4 ?C (99.3 ?F) BP 152/77 Pulse 73 Temp 36.8 ?C (98.2 ?F) (Temporal Artery) Resp 16 Ht 172.7 cm (5' 8) Wt 76 kg (167 lb 8.8 oz) SpO2 96% BMI 25.48 kg/m? O2 Therapy: Room Air IANDO: Date 07/18/18699 - 07/19/18 0659 07/19/18699 - 07/20/18 0659 Shift 5685-5983 2579-2823 9214-5598 24 Hour Total 1485-5552 8374-5230 4435-3489 24 Hour Total I N T A K E PO 580 360 940 PO 580 360 940 Shift Total 580 360 940 O U T P U T Urine 1 1 325 327 Void (ml) 325 325 Urine Not Saved 1 1 2 Shift Total 1 1 325 327 Weight (kg) 76 76 76 76 76 76 76 76 MEDICATIONS Current Facility-Administered Medications: senna 8.6 mg tab(s) (SENOKOT) 8.6 mg ORAL BID morphine 2-4 mg injection 2-4 mg INTRAVENOUS q 2 H PRN docusate sodium 100 mg cap(s) (COLACE) 100 mg ORAL BID enoxaparin 30 mg injection (LOVENOX) 30 mg SUBCUTANEOUS q 12 H 0.9% NaCl 2-10 mL 2-10 mL INTRAVENOUS q 12 H methocarbamol 1,000 mg tab(s) (ROBAXIN) 1,000 mg ORAL TID acetaminophen 975 mg tab(s) (TYLENOL) 975 mg ORAL q 6 H oxyCODONE IR 5-10 mg tab(s) (ROXICODONE) 5-10 mg ORAL q 4 H PRN Labs: Recent Labs 07/18/18 0300 NA 139 K 3.7 CHLOR 107 CO2 27 BUN 17 CREAT 1.07 GLUC 101* ANION 9 CA 8.4* WBC 15.69* HB 13.8 HCT 41.4 PLT 240 Exam: GENERAL: No distress, Alert; Not appearing toxic, septic, ill or diaphoretic. NEURO: AANDOx3, Light touch sensation grossly intact in all extremities. HEENT: normocephalic, atraumatic LUNGS: Unlabored breathing on RA. Lungs CTAB. No harsh breath sounds. CARDIAC: Regular rate and rhythm as above. B/L radial and DP pulses 2+. ABDOMEN: Soft, non-tender, non-distended. Normoactive bowel sounds in all quadrants. No guarding or masses. EXTREMITIES: MEDELLIN, No deformities, No edema. Motor strength intact and symmetric in extremities x 4. SKIN: Skin color, texture, turgor normal, No rashes or lesions ASSESSMENT AND PLAN: Active Hospital Problems Diagnosis Date Noted - Nicotine use disorder, F17.2 07/18/2018 - Fall from ladder 07/17/2018 - Lumbar compression fracture (HCC) 07/17/2018 62 year old male s/p fall from ladder with compression fractures of superior endplates of T12 and L1 as well as chip fracture of L2 spinous process, undisplaced fracture of right pars interarticularis of T11, undisplaced fx of R T12 pedicle, nondisplaced L2 TP fx (per MRI completed 07/18/18 - 13 thoracic-type vertebrae, mild acture compression fxs T12, T13, and L3, incidental 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 - TSLO brace obtained and patient wearing - Standing L-spine X-Rays - await radiology interpretation and final NSGY recs. - Dispo: PT/OT recommending home (possibly with home PT). CM following Rosales Gibbons PA-C 07/19/2018 12:06 PM SIGNATURE: Rosales Gibbons PA-C PATIENT NAME: Ghada Brambila DATE: July 19, 2018 TIME: 12:06 AM Pager: [phone] LUMBOSACRAL SPINE 2 OR Observed: 07/19/2018 Status: F Source: [facility] 3 VIEWS 10:54 AM HEALTH SYSTEM REPOSITORY Performed at [facility] APPROVED BY: Byron Eckert MD EXAM TITLE: LUMBOSACRAL SPINE 2 OR 3 VIEWS DATE: 07/19/2018 10:45 INDICATION: Status post trauma with T12, T 13 (patient has 13 thoracic type vertebral bodies), and the L3 fracture. COMPARISON: MRI dated 07/18/2018. AP and sitting upright view of the lumbar spine show mild compression deformity superior endplates of T12, T 13, and superior endplate of L3 similar to prior MRI. Vertebral body heights are otherwise maintained. Narrowing of intervertebral disc space at the level of T11- 12 and T12 -T13 and T13-L1. IMPRESSION: Status post compression deformities in the lower thoracic and lumbar spine. THERAPY NT Observed: 07/19/2018 Status: COMPLETED Source: [place] 10:32 AM [facility] OTHER CAMPUS REPOSITORY HNO ID: [id number] Author: Radha Diaz Service: Physical Therapy Author Type: Tax Expert Type: Therapy (PT/OT/Speech/Resp) Filed: 07/19/2018 10:32 AM Note Text: Attestation signed by Melanie Heath PT at 07/19/2018 10:50 AM I reviewed and agree with the documentation corresponding to this therapy visit. SIGNATURE: Melanie Heath PT DATE: July 19, 2018 TIME: 10:50 AM PHYSICAL THERAPY MISSED VISIT SERVICE DATE: 07/19/2018 SERVICE TIME: 1030 to 1030 ROOM: [id number] Attempted Treatment. Patient not seen due to Test/Procedure. SIGNATURE: Radha Diaz PTA PATIENT NAME: Ghada Brambila DATE: July 19, 2018 TIME: 10:32 AM PLAN OF CARE Observed: 07/19/2018 Status: COMPLETED Source: [place] 9:39 AM [facility] OTHER CAMPUS REPOSITORY HNO ID: [id number] Author: Rona Mc (Instrument Shop Supervisor) Service: (none) Author Type: (none) Type: Plan of Care Filed: 07/19/2018 9:40 AM Note Text: TAIL TRIMMER BEDSIDE DELIVERY SURVEY 1. Patient to use [facility] Bedside Delivery - YES 2. If fax, patient would like us to fax prescriptions to Pharmacy of choice a. Pharmacy: b. Location: c. Phone: 3. Insurance card on file - YES 4. Credit card for payment - N/A No prescriptions yet. Please call Rona robertson [phone] or [phone] upon discharge. THERAPY NT Observed: 07/19/2018 Status: COMPLETED Source: [place] 9:26 AM [facility] OTHER CAMP[facility] REPOSITORY HNO ID: [id number] Author: Brandie MaosnOtr/Julita De La Rosa Service: Occupational Therapy Author Type: Occupational Therapist Type: Therapy (PT/OT/Speech/Resp) Filed: 07/19/2018 9:35 AM Note Text: Occupational Therapy Evaluation SERVICE DATE: 07/19/2018 SERVICE TIME: 823 to 853 ROOM: [place] [address] Recommended Discharge Disposition: Home Recommended Discharge Disposition Comments: Increased assist from as needed Anticipated Discharge Needs: Physical Assist at Home;Supervision at Home;Equipment Physical Assist at Home for: Cleaning;Laundry;Meals;Transportation;Shopping;Self Care Supervision at Home due to: (medical status change) Recommended Discharge Equipment: Microfilm Operator;Long Handled Sponge;Shower Chair OT Recommendations to Nursing: To Bathroom for ADL?s /and or Toileting;With assist of 1 person Equipment: Wheeled Walker OT 6 Clicks Score: 20 Precautions/Activity Restrictions: Fall Risk;Spine;Brace Precaution/Activity Restriction Comments: TLSO Isolation Type: None ASSESSMENT: OT Evaluation Low Complexity: Occupational Profile - Brief review of patient's medical record completed (please see current hospital course of evaluation). Occupational Performance - Pt presents with deficits in LE bathing/dressing, functional transfers, functional mobility, decreased safety awareness, Complexity in Clinical Decision Making - The extent of clinical reasoning was low, number of treatment options limited, no need for modifications during the evaluation process, no comorbidities present to affect patient's occupational performance. Patient Disposition at Start of Session: Family Present (on EOB) Patient Disposition at End of Session: Family Present (EOB) Tolerated Full Session Occupational Therapy Problem List: Education Deficit;Safety Deficits;Impaired Self Care;Functional Mobility Impairment Patient /Caregiver Goals: Go Home Goals for Plan of Care: Lower Body Bathing with: Modified Independent Lower Body Dressing with: Modified Independent Tolerate (minutes of functional activity): 20 Functional Activity with: Supervision Additional Goal 1: Pt to demo/recall BLT precautions with ADLs without cues Additional Goal 2: Pt to demo don/doff brace without assist or cues Transfer: Pt to demo safe ww transfers without cues Rehab Potential: Excellent PLAN: Treatment Frequency (times per week): 5 (2-5) Current admission Treatment Interventions: Education;Self Care / Home Management;Functional Mobility Training Plan of Care developed with: Patient;Family TREATMENT INTERVENTIONS: Therapy Diagnosis: Decreased activities of daily living (ADL);Unsteadiness on feet;Signs and Symptoms Involving Cognitive Functions and Awareness;Reduced mobility-other Interventions Provided: Evaluation;Self Senior Living Management (09085) $ Evaluation-Low (62702) Billed Units: 1 unit Self Senior Living Management (89199) Treatment Minutes: 12 1 unit Skilled Intervention(s): Educated patient on BLT precautions to protect spine with ADLs / IADLs. Discussed how techniques apply to pt's individual situation/needs and provided handout. Pt educated / practices lower body dressing of shorts and don/doff socks strategies with adaptive equipment of gun number and sock aide requiring cues, assist, reminders on back precautions. Demonstrated tub seat transfer/car transfer in room. Edu on where to obtain adaptive equipment. Edu on walker bag benefits. Reinforced hand placement with walker transfers. Edu/practiced don/doff soft TLSO. Edu pt and communicated on whiteboard mobility level 3 A x1 with walker. Total Timed Code Treatment Minutes: 12 Total Treatment Time (minutes): 30 FUNCTIONAL G CODE: OT 6 Clicks Score: 20 (07/19/18823) Self Care Current Status (G8987): CJ (07/19/18823) Self Care Goal Status (G8988): CI (07/19/18 1223) Based on clinical assessment and the score on the 6 Clicks Functional Assessment Tool, the G code and corresponding severity modifiers are documented above. SUBJECTIVE: Current Hospital Course: Chart reviewed; Patient is a 62-year-old male who presents after fall. Patient was working near his home on a ladder and fell off landing on his back yesterday. He was found by his who reported hearing the fall and finding the patient face down and unconscious. She states he was unconscious for approx 2-3 minutes. Patient was able to ambulate without difficulty however noted progressive back pain. Patient transferred [facility] Injuries: compression fractures of superior endplates of T12 and L1 as well as chip fracture of L2 spinous process, undisplaced fracture of right pars interarticularis of T11, undisplaced fx of R T12 pedicle, nondisplaced L2 TP fx Per Neurosx no surgical intervention, ordered soft TLSO for pt. Active Hospital Problems Diagnosis - Nicotine use disorder, F17.2 - Fall from ladder - Lumbar compression fracture (HCC) No past medical history on file. No past surgical history on file. Reason for Occupational Therapy Consult: Progressive mobility protocol Relevant Past Medical History: none Patient Report: Pt in room with present, sitting edge of bed I want to get up and walk around Pain: 8/10 with spasm in his back, otherwise 5/10 Home Environment Patient Lives With: Significant Other (several family members present on eval, very supportive) Assistance Available: 24 Hour Entry To Home: Stairs;Without Rail (platform steps) Number Of Stairs Into Home: 3 (platform steps) Number Of Stairs To Bed/Bath: 0 Tub/Shower Type: tub/shower Laundry: main floor Equipment Owned: (None) Prior Functional Level: Within Functional Limits (indep, working, driving, active, denies prior falls) OBJECTIVE: Responsiveness: Alert;Awake Follows Commands: 1-step Commands Memory Deficits: Short Term (3/3) Executive Function Deficits: Safety Awareness;Judgement Safety Awareness Deficit: Minimal impairment Judgement Deficit: Minimal impairment CURRENT FUNCTIONAL STATUS: Current Activities of Daily Living Assist Level Feeding Independent Grooming Contact Guard Assistance (standing at sink) Bathing Upper Body Minimal Assistance Bathing Lower Body Minimal Assistance Dressing Upper Body Stand By Assistance Dressing Lower Body Minimal Assistance Toileting Minimal Assistance Functional Mobility Assist Level Rolling Supine to Sit Sit to Supine Scooting Sit to Stand Minimal Assistance Stand to Sit Bed to Chair Toilet/Commode Contact Guard Assistance Functional Mobility Contact Guard Assistance Wheeled Walker Range of Motion: WFL (with functional activity) Strength: WFL (with functional activity in room) Edu pt on fall prevention / up with assistance. Pt left in room on EOB with calllight within reach. Please see discipline specific clinical documentation flowsheet for complete details for this therapy evaluation/treatment. SIGNATURE: Brandie De La Rosa OTR/Leticia PATIENT NAME: Ghada Brambila DATE: July 19, 2018 TIME: 9:26 AM CASE MGT INIT Observed: 07/19/2018 Status: COMPLETED Source: [facility] 8:52 AM CLINIC OTHER CAMPUS REPOSITORY HNO ID: [id number] Author: Keri (Rn) NAS Thurston Service: Care Management Author Type: Registered Nurse Type: Care Mgt Initial Assessment Filed: 07/19/2018 8:58 AM Note Text: CARE MANAGEMENT: ASSESSMENT AND DISCHARGE PLAN SERVICE DATE: 07/19/2018 SERVICE TIME: 8:54 AM PRIMARY CARE PHYSICIAN: No primary care provider on file. Phone: None ADMISSION STATUS: Inpatient Needs Prior to Discharge: Equipment Delivery MEDICAL: Patient/Tip Tester Stated Goals: To have reduction in pain To have reduction in symptoms Health Insurance: [employer] PLAN PREFERRED HEALTH CHOICE [place] [employer] Health Issues Impacting Discharge Plan: Newly diagnosed lumbar fracture Last Admission Date: none Is this Within the Past 30 days? No Advance Directive: Current Advance Directive: None Opener Verifier [employer] Attempted to Assist with AD Completion: Yes Action: Patient Unwilling Health Literacy: 1. How often do you need to have someone help you when you read instructions, pamphlets, or other written material from your doctor or pharmacy? Never - 1 2. How confident are you filling out medical forms by yourself? Extremely - 1 If Patient scores > 3 on either question, the following interventions were put into place: Patient did not score > 3 FUNCTIONAL AND COGNITIVE/BEHAVIORAL PRIOR TO ADMISSION: Baseline Mental Status: Alert AND Oriented, Person, Place , Time and Situation Functional Status: Independent Does Patient Currently Receive Any Community Services or Home Care? None Equipment Prior to Admission: None Has the Patient Been in a Care Home Facility in the Past 30 days? No SOCIAL: Living Arrangement: Home Lives With: Spouse Financial Resources: Employed: . Primary Contact: Extended Emergency Contact Information Primary Emergency Contact: Sera Brambila Mobile Relation: Spouse Supportive: Yes Other Important Patient Contacts: None Caregiver Assessment: Caregiver is ready, willing and able to meet the patient's needs as recommended by the inter-professional team? No Caregiver Needed Patient's transition needs and plan for meeting these needs: 2 Does the patient have an acute stroke diagnosis, or has the patient had a stroke during this admission? No Medication Adherence: I am convinced of the importance of my prescription medication: Agree completely - 0 I worry that my prescription medication will do more harm than good to me Disagree completely - 0 I feel financially burdened by my [id number] expenses for my prescription medication: Disagree completely - 0 Patient is categorized as low risk < 2 Are you interested in bedside delivery of your medications? Yes Food Concerns: In the Last Month, Have You had Trouble Getting Food? No trouble getting food During the Last Month, Have You Worried Whether Your Food Would Run Out Before You Had Enough Money to Buy More? No Is the Patient Psychosocially Complex? No ASSESSMENT AND PLAN: Medical Needs: None Psychosocial Needs: None FREEDOM OF CHOICE EXPLAINED: Yes explained to patient POTENTIAL TRANSITION PLANS Durable Medical Equipment Chart reviewed. Met with patient at bedside. Patient from home with , independent INSTRUMENT AND ELECTRICAL TECHNICIAN. Denies dme. Does not have pcp. PT.OT kyaw completed recommending home with home care, may need to do outpatient therapy as patient lives in [facility]. Will speak with therapy. Patient needs wheeled walker. Script on chart, referral sent awaiting signature. Will follow. SIGNATURE: Keri Thurston RN PATIENT NAME: Ghada Brambila DATE: July 19, 2018 TIME: 8:53 AM PAGER/CONTACT #: [phone] THERAPY NT Observed: 07/18/2018 Status: COMPLETED Source: [place] 5:18 PM CLINIC OTHER CAMPUS REPOSITORY HNO ID: [id number] Author: Kenisha Stevenson Service: Physical Therapy Author Type: Physical Therapist Type: Therapy (PT/OT/Speech/Resp) Filed: 07/18/2018 5:35 PM Note Text: Physical Therapy Evaluation SERVICE DATE: 07/18/2018 SERVICE TIME: 1510 to 1550 ROOM: [place] [address] Recommended Discharge Disposition: Home PT Anticipated Discharge Needs: Physical Assist at Home;Equipment Physical Assist at Home for: Transportation;Stairs;Laundry;Cleaning;Meals;Shopping;Self Care;Safety Recommended Discharge Equipment: Wheeled Walker PT Recommendations to Nursing: Ambulate with device;To bathroom;In halls;With assist of 1 person Device: Brace;Wheeled Walker PT 6 Clicks Score: 17 Precautions/Activity Restrictions: Fall Risk;Spine;Brace Precaution/Activity Restriction Comments: TLSO Isolation Type: None ASSESSMENT : Patient presents with personal factors, comorbidities and results of the PT examination that require moderate complexity decision making. The patient requires skilled physical therapy to address multiple PT problems in order for the patient to return to a baseline functional level. Patient Disposition at Start of Session: Supine in Bed;Family Present;Call Goff in Reach Patient Disposition at End of Session: Supine in Bed;Call Goff in Reach;Family Present Tolerated Full Session Physical Therapy Problem List: Education Deficit;Pain;Safety Deficits;Impaired Self Care;Decreased Activity Tolerance;Decreased Range Of Motion;Decreased Strength;Functional Mobility Impairment;Balance Impaired Patient /Caregiver Goals: Go Home;Walk Goals for Plan of Care: Able to perform HEP with: Set Up (3 x 10 LE exercises) Rolling with: Modified Independent Transfer supine to/from sit with: Modified Independent Transfer sit to/from stand with: Modified Independent Ambulate with: Modified Independent Distance: 50' intervals Device: Wheeled Walker Ambulate up and down steps with: Supervision Number of steps: 1 platform step Device: (using FWW) Transfer: stand-pivot with mod I Rehab Potential: Good PLAN: Treatment Frequency (times per week): 7 (3-7) Current admission Treatment Interventions: Education;Self Care / Home Management;Strengthening;Functional Mobility Training;Balance Training;Modalities;Orthotic Management and Training Modalities: Ice Plan of Care developed with: Patient;Family TREATMENT INTERVENTIONS: Therapy Diagnosis: Difficulty walking-musculoskeletal;Unsteadiness on feet Interventions Provided: Evaluation;Therapeutic Activity (14840);Gait Training (47801) $ Evaluation-Moderate (98053) Billed Units: 1 unit Therapeutic Activity (83731) Treatment Minutes: 13 1 unit Skilled Intervention(s): Functional mobility performed as described below; pt wearing TLSO brace throughout. Pt / family ed re: spine precautions. Instructed patient in log roll technique, with extra time needed to adjust to positional changes. Instruction in sit to and from stand technique with proper hand placement and body positioning at edge of bed/chair (x multiple reps, including at EOB and raised commode with use of grab bars). Time spent with pt AND family discussing: role of PT, goals/POC, DME, d/c planning -- supportive family, reports able to assist 24/ at home; walker needed for ambulation. Gait Training (93963) Treatment Minutes: 10 1 unit Skilled Intervention(s): (+) LE buckling x several episodes with standing and gait -- due to intermittent shooting back pains per pt report. Instructed upright posture in standing with FWW. Instructed safe use of FWW with amb, doretha keeping frame close with use of UEs needed to support LE instability. Also pt/family ed re: safe guarding/assisting technique - verbalized understanding and performed successful return demo. Total Timed Code Treatment Minutes: 23 Total Treatment Time (minutes): 40 FUNCTIONAL G CODE: PT 6 Clicks Score: 17 (07/18/18 1510) Mobility: Walking and Moving Around Current Status (G8978): CK (07/18/18 1510) Mobility: Walking and Moving Around Goal Status (G8979): CJ (07/18/18 1510) Based on clinical assessment and the score on the 6 Clicks Functional Assessment Tool, the G code and corresponding severity modifiers are documented above. SUBJECTIVE: Current Hospital Course: Chart reviewed; pt is a 62 year old male who presents to [facility] as a Level 2 trauma after a fall from a ladder 1 day ago. He was originally assessed by EMS who recommended that the patient go to the ED but the patient declined. He then presented to [facility] for continued/worsening pain, then transferred to [facility] after finding a T12/L1 fx and renal laceration on CT. Pt complains of pain in his thoracic and lumbar spine. He was found by his who reported hearing the fall and finding the patient face down and unconscious. She states he was unconscious for approx 2-3 minutes. The pt denies any other injuries, denies LOC and denies the use of any blood thinners. GCS at Scene was 15. IMAGING: -bilaterall basilar airspace consolidation and or atelectasis, pulmonary contusion vs pulmonary hemorrhage -Questionable small L renal laceration of lower pole -hepatic steatosis -mild splenomegaly -right sided renal cysts -colonic diverticulosis -small hiatal hernia -non-displaced fracture of the anterior superior aspect of T12 -nondisplaced fracture of the superior endplate of L1 -nondisplaced fracture of the R pars interarticularis of T11 -Undisplaced fracture of the right pedicle of T12 -nondisplaced fracture of the right transverse process of L2 Non-op per neurosurgery. TLSO brace ordered; Ambulate and plain films after brace obtained. Active Hospital Problems Diagnosis - Nicotine use disorder, F17.2 - Fall from ladder - Lumbar compression fracture (HCC) Reason for Physical Therapy Consult : PT eval AND treat, ambulate in TLSO Relevant Past Medical History: fall from ladder, spine fx's Patient Report: pain not bad at rest, increases with movement; agreeable to PT and requests to use bathroom. Home Environment Patient Lives With: Significant Other (several family members present on eval, very supportive) Assistance Available: 24 Hour Entry To Home: Stairs;Without Rail (platform steps) Number Of Stairs Into Home: 3 (platform steps) Number Of Stairs To Bed/Bath: 0 Equipment Owned: (None) Prior Functional Level: Within Functional Limits (indep, working, driving, active, denies prior falls) OBJECTIVE: Range of Motion: WFL Except (painful, (+) guarding) Strength: Lower Extremity Comments (grossly 4 to 4+/5) Tone Abnormalities: (tone WNL) CURRENT FUNCTIONAL STATUS: Current Functional Mobility Assist Level Additional Information Rolling Minimal Assistance Supine to Sit Minimal Assistance Sit to Supine Minimal Assistance Scooting Stand By Assistance Sit to Stand Contact Guard Assistance Stand to Sit Contact Guard Assistance Bed to Chair Toilet/Commode Contact Guard Assistance Gait Contact Guard Assistance Gait Device: Wheeled Walker Gait Distance (feet): 30' x 1, 20' x 1, 10' x 1 (included stop at bathroom) Stairs Curb Step Car Transfer General Gait Deviations: Dara decreased;Flexed trunk posture;Step length decreased;Narrow Base of Support ((+) LE buckling, heavy support needed using UEs on device) Balance: Static Standing;Dynamic Standing Static Standing Balance: Stand By Assistance Dynamic Standing Balance: Minimal Assistance Please see discipline specific clinical documentation flowsheet for complete details for this therapy evaluation/treatment. SIGNATURE: Kenisha Stevenson PT PATIENT NAME: Ghada Brambila DATE: July 18, 2018 TIME: 5:18 PM MRI THORACIC SPINE Observed: 07/18/2018 Status: F Source: Immediately W/O CONTRAST 10:03 AM HEALTH SYSTEM REPOSITORY Performed at [facility] APPROVED BY: Manoj Garcia MD THORACIC SPINE MRI WITHOUT CONTRAST ENHANCEMENT LUMBOSACRAL SPINE MRI WITHOUT CONTRAST ENHANCEMENT Serial images of the thoracic and lumbosacral portions of the spine were obtained in the sagittal plane with T1W, T2*weighting, T2W, and with a STIR sequence and in the transverse plane with T1W and T2W . The study was technically limited due to artifact arising from patient motion and was performed to evaluate traumatic injury. Serial images demonstrate the presence of thirteen (13) thoracic- type rib-bearing vertebrae. Serial images demonstrate the presence of relatively mild compression fractures involving the T12, T 13, and L3 vertebral bodies. Abnormal signal intensity is identified subjacent to the depressed supe rior endplates at each level, decreased with T1W and increased with T2W and STIR sequence images. No significant retropulsion of bone fragments is identified. Except for slight dilatation of the central canal, the spinal cord demonstrates normal caliber and signal intensity. There is no definite evidence of focal disc protrusion or of epidural hematoma formation. IMPRESSION: 1. Thirteen (13) thoracic-type vertebrae as described above. 2. Relatively mild acute compression fractures involving the T12, T 13, and L3 vertebral bodies as noted. 3. 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 MRI LUMBAR SPINE W/O Observed: 07/18/2018 Status: F Source: Immediately CONTRAST 10:03 AM HEALTH SYSTEM REPOSITORY Performed at [facility] APPROVED BY: Manoj Garcia MD THORACIC SPINE MRI WITHOUT CONTRAST ENHANCEMENT LUMBOSACRAL SPINE MRI WITHOUT CONTRAST ENHANCEMENT Serial images of the thoracic and lumbosacral portions of the spine were obtained in the sagittal plane with T1W, T2*weighting, T2W, and with a STIR sequence and in the transverse plane with T1W and T2W . The study was technically limited due to artifact arising from patient motion and was performed to evaluate traumatic injury. Serial images demonstrate the presence of thirteen (13) thoracic- type rib-bearing vertebrae. Serial images demonstrate the presence of relatively mild compression fractures involving the T12, T 13, and L3 vertebral bodies. Abnormal signal intensity is identified subjacent to the depressed supe rior endplates at each level, decreased with T1W and increased with T2W and STIR sequence images. No significant retropulsion of bone fragments is identified. Except for slight dilatation of the central canal, the spinal cord demonstrates normal caliber and signal intensity. There is no definite evidence of focal disc protrusion or of epidural hematoma formation. IMPRESSION: 1. Thirteen (13) thoracic-type vertebrae as described above. 2. Relatively mild acute compression fractures involving the T12, T 13, and L3 vertebral bodies as noted. 3. 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 PROGRESS Observed: 07/18/2018 Status: COMPLETED Source: [place] 6:35 AM CLINIC OTHER CAMPUS REPOSITORY HNO ID: [id number] Author: Khadijah Ovalle Service: Trauma Author Type: Physician Type: Progress Notes Filed: 07/21/2018 1:57 AM Note Text: Trauma Surgery Progress Note SERVICE DATE: 07/18/2018 SUBJECTIVE: NAEON. Pt tolerating regular diet. No N/V. On bedrest. Pain well controlled. Denies new weakness, numbness, tingling. OBJECTIVE: Vitals: Temp (24hrs), Av.7 ?C (98.1 ?F), Min:36.6 ?C (97.9 ?F), Max:37.1 ?C (98.8 ?F) BP 122/68 Pulse 76 Temp 36.8 ?C (98.2 ?F) (Oral) Resp 16 Ht 172.7 cm (5' 8) Wt 76 kg (167 lb 8.8 oz) SpO2 93% BMI 25.48 kg/m? O2 Therapy: Room Air IANDO: MEDICATIONS Current Facility-Administered Medications: morphine 2-4 mg injection 2-4 mg INTRAVENOUS q 2 H PRN docusate sodium 100 mg cap(s) (COLACE) 100 mg ORAL BID enoxaparin 30 mg injection (LOVENOX) 30 mg SUBCUTANEOUS q 12 H 0.9% NaCl 2-10 mL 2-10 mL INTRAVENOUS q 12 H methocarbamol 1,000 mg tab(s) (ROBAXIN) 1,000 mg ORAL TID acetaminophen 975 mg tab(s) (TYLENOL) 975 mg ORAL q 6 H oxyCODONE IR 5-10 mg tab(s) (ROXICODONE) 5-10 mg ORAL q 4 H PRN influenza vaccine 60 mcg (Patients 3 to 64 years) (PF) (FLUZONE 2018-) 0.5 mL INTRAMUSCULAR ONCE (IMMUNIZATION) Labs: Recent Labs 07/18/18 0300 NA 139 K 3.7 CHLOR 107 CO2 27 BUN 17 CREAT 1.07 GLUC 101* ANION 9 CA 8.4* WBC 15.69* HB 13.8 HCT 41.4 PLT 240 Exam: GENERAL: No distress, Alert NEURO: AANDOx3, CN II-XII grossly intact HEENT: normocephalic, atraumatic LUNGS: Unlabored breathing on room air CARDIAC: Regular rate and rhythm as above ABDOMEN: Soft, non-tender, non-distended EXTREMITIES: MEDELLIN, No deformities, No edema NEURO: motor sensation equal intact BLE ASSESSMENT AND PLAN: There are no active hospital problems to display for this patient. 62 year old male s/p fall from ladder with compression fractures of superior endplates of T12 and L1 as well as chip fracture of L2 spinous process, undisplaced fracture of right pars interarticularis of T11, undisplaced fx of R T12 pedicle, nondisplaced L2 TP fx - regular diet - bedrest/logroll/ neurochecks - neurosurgery following - MRI pending of T/L spines - TLSO brace ordered. Ambulate and plain films after brace obtained - continue current pain regimen - [facility] Trauma Service Pager: For questions or concerns Mon-Fri 6a-5p please page [phone]. After 5pm and on Weekends and Holidays, please page [phone] if in ICU or [phone] if on RNF. SIGNATURE: Barry Barajas MD PATIENT NAME: Ghada Brambila DATE: July 18, 2018 TIME: 6:36 AM Pager: [phone] Attending Note I evaluated the patient and personally participated in the pacheco components. I agree with the resident's findings and plan as documented and have discussed the case and management of the patient's care with the resident. Khadijah Ovalle MD Department of General Surgery Section of Trauma, Surgery Critical Care, and Acute Care Surgery Delayed entry HEMOGRAM/DIFF Collected: 07/18/2018 Status: F Source: [facility] 3:00 AM HEALTH SYSTEM REPOSITORY TYPE CODE TESTS RESULT OUT OF REFERENCE UNITS RANGE LAB WBC(LOINC) 4.23-9.07 thou/cmm WBC High 15.69 LAB RBC(LOINC) 4.63-6.08 mil/cmm Low RBC 4.54 LAB HGB(LOINC) 13.7-17.5 g/dL Hgb 13.8 LAB HCT(LOINC) 40.1-51.0 % Hct 41.4 LAB MCV(LOINC) 83.2-95.6 fl MCV 91.2 LAB MCH(LOINC) 25.7-32.2 pg MCH 30.4 LAB MCHC(LOINC 32.3-36.5 % ) MCHC 33.3 LAB RDW(LOINC) 11.6-14.4 % RDW 13.4 LAB RDWSD(LOIN 36.1-45.8 fl C) RDW SD 45.1 LAB PLT(LOINC) 141-365 thou/cmm Platelet 240 LAB MPV(LOINC) 8.7-12.0 fl MPV 9.6 LAB SEG(LOINC) % Seg Neutrophil 79.1 LAB IGRE(LOINC % ) Immature Grans 1.10 LAB LYMPH(LOIN % C) Lymphocyte 8.8 LAB MNO(LOINC) % Monocyte 9.2 LAB EOSIN(LOIN % C) Eosinophil 1.5 LAB BASO(LOINC % ) Basophil 0.3 LAB SEGN(LOINC 1.78-5.38 thou/cmm ) Abs. High Neut (ANC) 12.41 LAB IGAB(LOINC 0.00-0.05 thou/cmm ) Abs High Immature Grans 0.17 LAB LYMN(LOINC 0.84-2.85 thou/cmm ) Abs. Lymph 1.38 LAB MONON(LOIN 0.30-0.82 thou/cmm C) Abs. High Amite 1.44 LAB EOSN(LOINC 0.04-0.54 thou/cmm ) Abs. Eosin 0.24 LAB BASON(LOIN 0.01-0.08 thou/cmm C) Abs. Baso 0.05 Result Comment: Smear scanned; tech agrees with automated differential Performed By: #### CBCD1 #### [facility] [address] [address] BASIC PANEL Collected: 07/18/2018 Status: F Source: [facility] 3:00 AM HEALTH SYSTEM REPOSITORY TYPE CODE TESTS RESULT OUT OF REFERENCE UNITS RANGE LAB NA(LOINC) 136-145 mEq/L Sodium Blood 139 LAB K(LOINC) 3.5-5.1 mEq/L Potassium Blood 3.7 LAB CL(LOINC) 98-107 mEq/L Chloride Blood 107 LAB CO2(LOINC) 21-32 mEq/L CO2 Blood 27 LAB GLU(LOINC) 70-99 mg/dL Glucose High Blood 101 LAB BUN(LOINC) 7-18 mg/dL BUN Blood 17 LAB CREA(LOINC 0.67-1.17 mg/dL ) Creatinine Blood 1.07 LAB CA(LOINC) 8.5-10.1 mg/dL Low Calcium Blood 8.4 LAB ANGAP(LOIN 8-16 C) Anion Gap 9 Performed By: #### P8 #### [facility] [address] [address] MDRD GFR Collected: 07/18/2018 Status: F Source: [facility] 3:00 AM HEALTH SYSTEM REPOSITORY TYPE CODE TESTS RESULT OUT OF RANGE REFERENCE UNITS LAB GFRFN(LOINC >60mL/min/1.73m ) 2 eGFR >60 Result Comment: If the patient is , multiply the result by 1.210. Performed By: #### GFR #### [facility] [address] [address] CONSULT Observed: 07/17/2018 Status: COMPLETED Source: [place] 5:03 PM CLINIC OTHER CAMPUS REPOSITORY HNO ID: [id number] Author: Barry Barajas Service: Neurosurgery Author Type: Resident Type: Consults Filed: 07/18/2018 6:36 AM Note Text: Attestation signed by Blanco Macias at 07/18/2018 8:55 AM Neurosurgery Attending : Pt seen and examined in ER and discussed with Drs. Barajas and Vasquez and above note verified. I reviewed the CT with Dr Garcia. No Neuro deficit. Needs MRI L spine. Most likely treatment is a lumbar brace and F/U. In the next few days he is expected to have pain requiring medications. He has no Neuro deficit. When he ambulates he needs an AP and Lateral L spine xrays upright in the brace. Blanco Macias MD CONSULT: NEUROSURGERY SERVICE SERVICE DATE: 07/17/2018 SERVICE TIME: 3:04 PM REASON FOR CONSULT: T12/L1 compression fx REQUESTING PHYSICIAN: Dr Ovalle PRIMARY CARE PHYSICIAN: No primary care provider on file. Subjective Mr. Brambila is a 62 year old male who presents to the ED after a fall that occurred yesterday. Pt fell from a ladder and landed on his back. (+) LOC. He presented to the [facility] ED today for evaluation of ongoing, progressively worsening back pain. CT showed compression fractures of superior endplates of T12 and L1 as well as chip fracture of L2 spinous process, undisplaced fracture of right pars interarticularis of T11, undisplaced fx of R T12 pedicle, nondisplaced L2 TP fx as well as left renal lac. Pt has ambulated since accident. Pt is neuro intact. FUNCTIONAL STATUS: Independent No past medical history on file. No past surgical history on file. No family history on file. Social History Substance Use Topics - Smoking status: Never Smoker - Smokeless tobacco: Current User Types: Chew - Alcohol use 0.6 oz/week 1 Cans of beer per week No prescriptions prior to admission. Current hospital medications: influenza vaccine 60 mcg (Patients 3 to 64 years) (PF) (FLUZONE 2018-) 0.5 mL INTRAMUSCULAR ONCE (IMMUNIZATION) morphine 2-4 mg injection 2-4 mg INTRAVENOUS q 2 H PRN docusate sodium 100 mg cap(s) (COLACE) 100 mg ORAL BID enoxaparin 30 mg injection (LOVENOX) 30 mg SUBCUTANEOUS q 12 H 0.9% NaCl 2-10 mL 2-10 mL INTRAVENOUS q 12 H methocarbamol 1,000 mg tab(s) (ROBAXIN) 1,000 mg ORAL TID acetaminophen 975 mg tab(s) (TYLENOL) 975 mg ORAL q 6 H oxyCODONE IR 5-10 mg tab(s) (ROXICODONE) 5-10 mg ORAL q 4 H PRN Allergies As of Date: 07/17/2018 (No Known Allergies) Fully Assessed 07/17/2018 COMPLETE REVIEW OF SYSTEMS: GENERAL: No weight loss, malaise or fevers HEENT: Negative for frequent or significant headaches, No changes in hearing or vision, no nose bleeds or other nasal problems RESPIRATORY: Negative for cough, hemoptysis, wheezing, COPD, dyspnea or shortness of breath CARDIOVASCULAR: Negative for chest pain, leg swelling, hypertension, CHF or palpitations MUSCULOSKELETAL: back pain, myalgias, arthralgias NEURO: SEE HPI and no numbness/tingling or weakness Objective PHYSICAL EXAM: Physical Exam Performed: GENERAL: Alert, no distress, cooperative HEENT: NCAT, EOMI, PERRL, negative c-spine TTP, no JVD, no lacerations BACK: Thoracic and lumbar TTP. No stepoffs or deformities LUNGS: breath sounds equal CARDIAC: RRR ABDOMEN: soft, nondistended, nontender EXTREMITIES: MEDELLIN, no gross deformities NEURO: Grossly normal cognition, motor function, and cranial nerves III-XII. Motor/sensation equal and intact in all extremities BP 177/84 Pulse 76 Temp (Src) 97.9 (Oral) Resp 18 Ht 5' 8 (1.73m) Wt 167 lb 8.8 oz (76.0kg) SpO2 92% BMI 25.48 kg/(m2). DATA: Diagnostic tests reviewed for today's visit: Most recent labs and imaging results. See HPI for summary of imaging findings Impression/Recommendations 62yo male s/p fall from ladder with compression fractures of superior endplates of T12 and L1 as well as chip fracture of L2 spinous process, undisplaced fracture of right pars interarticularis of T11, undisplaced fx of R T12 pedicle, nondisplaced L2 TP fx. Pt has ambulated since accident. Pt is neuro intact. - continue care per trauma team - no acute intervention. Will be managed nonoperatively - obtain MRI T/L spines - bedrest/logroll - consult [facility] for TLSO The patient's images and neurological exam were discussed with the neurosurgery attending, Dr. Macias at 15:23 and the above plan reflects their recommendations. SIGNATURE: Barry Barajas MD PATIENT NAME: Ghada Brambila DATE: July 17, 2018 TIME: 5:04 PM PAGER: [phone] ED NOTE Observed: 07/17/2018 Status: COMPLETED Source: [place] 4:00 PM CLINIC OTHER CAMPUS REPOSITORY HNO ID: [id number] Author: Monalisa (Rn) NAS Chauhan Service: Emergency Medicine Author Type: Registered Nurse Type: ED Notes Filed: 07/17/2018 4:01 PM Note Text: Per op center pt is out of network. Dr. Kang notified and states pt should still be admitted here as he is a possibly unstable spinal fracture and should not be transferred again. ED NOTE Observed: 07/17/2018 Status: COMPLETED Source: [place] 3:53 PM CLINIC OTHER CAMPUS REPOSITORY HNO ID: [id number] Author: Monalisa MasonRn) NAS Chauhan Service: Emergency Medicine Author Type: Registered Nurse Type: ED Notes Filed: 07/17/2018 3:54 PM Note Text: [id number] a ready bed per NAS Watt. ALLIED HEALTH Observed: 07/17/2018 Status: COMPLETED Source: [place] 3:52 PM CLINIC OTHER CAMPUS REPOSITORY HNO ID: [id number] Author: Chaplain Hansen (Chaplain) Service: Spiritual Care Author Type: Psychology Professor Type: Allied Health Filed: 07/17/2018 3:54 PM Note Text: SPIRITUALCARE Spiritual Care Visit- Brief Note Name: Ghada Brambila Date: July 17, 2018 Notes: Psychology Professor paged for trauma. Patient declined spiritual support at this time. Psychology Professor Signature: Chaplain Jade To contact the Spiritual Care Department: Please call [phone] or Page the On-Call Psychology Professor at pager [phone] Thank you for the opportunity to be of service. This is an electronically created document. IF PRINTED, PLEASE DO NOT REMOVE FROM THE CHART OR MODIFY PRINTED COPY. ED NOTE Observed: 07/17/2018 Status: COMPLETED Source: [place] 3:51 PM [place] REPOSITORY HNO ID: [id number] Author: Monalisa MasonRn) NAS Chauhan Service: Emergency Medicine Author Type: Registered Nurse Type: ED Notes Filed: 07/17/2018 3:52 PM Note Text: Report to NAS Watt. On 52B ED NOTE Observed: 07/17/2018 Status: COMPLETED Source: [place] 3:38 PM [place] REPOSITORY HNO ID: [id number] Author: vEelyn Casey) Maribel Service: Social Work Author Type: Chain Dyer Type: ED Notes Filed: 07/17/2018 3:39 PM Note Text: CARE MANAGEMENT PROGRESS NOTE SERVICE DATE: 07/17/2018 SERVICE TIME: 14:00 LOS: 0 days Trauma II: Fall Pt transferred to [facility] ED from [facility]. Met with pt's and dtr; provided support. Contact: Sera Kosta, pt's , SIGNATURE: JANINE Franco PATIENT NAME: Ghada Brambila DATE: July 17, 2018 TIME: 3:38 PM PAGER/CONTACT #: [phone] HISTORY PHYSICAL Observed: 07/17/2018 Status: COMPLETED Source: [place] 2:33 PM [place] REPOSITORY HNO ID: [id number] Author: Khadijah Ovalle Service: Thoracic Surgery Author Type: Physician Type: HANDP Filed: 07/28/2018 10:14 AM Note Text: TRAUMA HANDP [facility] ARRIVAL DATE: 07/17/2018 ARRIVAL TIME: 14:03 CATEGORY: Level 2 INJURY DATE: 07/16/2018 INJURY TIME: unknown Subjective This is a 62 year old white male who presents to [facility] as a Level 2 trauma after a fall from a ladder 1 day ago. He was assessed by EMS who recommended that the patient go to the ED but the patient declined. He presented to [facility] ED today for continued/worsening pain who then transferred the patient to [facility] after finding a T12/L1 fx and renal laceratoin on CT. Pt complains of pain in his thoracic and lumbar spine. He was found by his who reported hearing the fall and finding the patient face down and unconscious. She states he was unconscious for approx 2-3 minutes. The pt denies any other injuries, denies LOC and denies the use of any blood thinners. GCS at Scene was 15. HPI/CHIEF COMPLAINT: fall BRIEF DESCRIPTION OF INJURIES: T12 and L1 vertebral fractures, possible splenic laceration LAST FLUIDS/MEAL: unknown CODE STATUS: Not discussed ALLERGIES No Known Allergies (Not in a hospital admission) DATE OF LAST TETANUS: unknown There is no immunization history on file for this patient. No past medical history on file. No past surgical history on file. Social History Main Topics Smoking status: Never Smoker Smokeless tobacco: Current User Types: Chew Alcohol use: Yes 0.6 oz/week Cans of beer: 1 per week Drug use: No Sexual activity: Yes Partners with: Female ROS: Is the patient having any pain? Yes LOCATION: T and L spine Constitutional: Negative Eye/Ear/Nose: Negative Respiratory: Negative Cardiovascular: Negative GI/Liver/Biliary: Negative Genitourinary: Negative Psychiatric: Negative Neurologic: Negative Musculoskeletal: Negative Integument: Negative Endocrine: Negative Heme/Lymph: Negative Objective PRIMARY SURVEY AIRWAY: Patent BREATHING: Breath sounds equal CIRCULATION: PT/DP 2+, Radials 2+, Femoral 2+, Carotid 2+ DISABILITY: Eye: 4=Spontaneous Verbal: 5=Oriented and Converses Motor: 6=Obeys Commands Total GCS: 15=4 Resp Rate: 10 to 29=4 Syst BP: > than 89=4 REVISED TRAUMA SCORE: 12 EXPOSE / ENVIRONMENT: Warm Blankets PROCEDURES: Backboard: Removed at 1413 Cervical Collar: Removed at still on SECONDARY SURVEY VITALS: 07/17/18 1410 07/17/18 1413 07/17/18 1417 07/17/18 1425 BP: (!) 206/101 177/93 156/89 Pulse: (!) 91 78 77 Resp: Temp: 37.1 ?C (98.8 ?F) TempSrc: Oral SpO2: (!) 93% (!) 93% (!) 93% Weight: 81.6 kg (180 lb) Height: 175.3 cm (5' 9) NEURO: Alert AND Oriented x 3, GCS 15, Cranial Nerves II-XII Intact, Moves All Extremities, Strength Symmetrical, No Sensory Deficits HEENT: Head: No lacerations or abrasions, no bony step offs, midface stable to palpation, Eyes: PERRL, conjunctiva/corneas without lesions, EOM intact, Ears: Canals without blood or CSF drainage, TMs clear, external ears without lacerations, Nose: Septum midline, no crepitus with motion, Throat: Oral mucosa without lacerations, teeth in place, tongue without lacerations NECK: No midline pain with palpation, No pain with active ROM, No lacerations/wounds, No JVD RESPIRATORY: No abrasions or contusions, No crepitus, No TTP CARDIOVASCULAR: Heart rate regular, S1S2 with no R/M/G ABDOMEN: Non-distended, No scars or lacerations, Non-tenderness or peritoneal signs, No masses or organomegaly, Bowel sounds present all quads, Distended PELVIC/PERINEAL: Normal male genitalia, Pelvis stable to palpation, No blood noted at urethra meatus BACK/SPINE: No step off or deformity noted, No external injury noted. T and L spine tenderness EXTREMITIES: Arm/Shoulder normal bilaterally, Forearm/Elbow normal bilaterally, Hand/Wrist normal bilaterally, Thigh/Hip normal bilaterally, Leg/Knee normal bilaterally, Foot/Ankle normal bilaterally PRIOR TO ARRIVAL: Loss of Consciousness for 2-[address] A/P from outside hospital -bilaterall basilar airspace consolidation and or atelectasis, pulmonary contusion vs pulmonary hemorrhage -Questionable small L renal laceration of lower pole -hepatic steatosis -mild splenomegaly -right sided renal cysts -colonic diverticulosis -small hiatal hernia -non-displaced fracture of the anterior superior aspect of T12 -nondisplaced fracture of the superior endplate of L1 -nondisplaced fracture of the R pars interarticularis of T11 -Undisplaced fracture of the right pedicle of T12 -nondisplaced fracture of the right transverse process of L2 reg diet, lvx, logroll/bedrest, MRI T/L (p), TLSO (p), non- op per NS LABS: CBC, Coags, BMP, Mg, Phos Assessment/Plan DIAGNOSES: Pars interarticularis fx of T11. R pedicle fx T12. Superior endplate fx of L1. Right transverse process fx of L2. possible L kidney laceration -Regular diet -Lovenox -Logroll/bedrest -MRI T/L (p), -TLSO (p), -Non-op per NS ED DISPOSITION: To RNF FINAL INJURIES: No new injuries were identified after physical examination and review of final radiological reading(s) of all studies. Plan of care discussed with Staff Trauma Surgeon: Dr. Vasquez MD SIGNATURE: Lauro Colunga MD PATIENT NAME: Ghada Brambila DATE: July 17, 2018 TIME: 2:34 PM PAGER/CONTACT #: Trauma Attending Note I have personally seen and evaluated this patient and participated in the pacheco components of this encounter. I discussed the management of this case with the surgery resident team and independently confirmed the findings and plan of care as documented either attached or in their separate note from today. Any corrections or additional notes are made as needed. I evaluated the patient on July 17, 2018 and 1430 pm. Assessment and Plan: Ghada Brambila is a 62 year old male evaluated following a Level 2 activation for fall from ladder with spine fractures The patient was evaluated according to ATLS protocols. Injuries and diagnoses are notable for: T11, T12 fx; L1 sup endplate; R TP L2 fx Admit, NSGY consult, reviewed with NSGY staff. Appropriate for floor. MRI. Non-op, diet Khadijah Ovalle MD Department of General Surgery Section of Trauma, Surgery Critical Care, and Acute Care Surgery Delayed entry ED NOTE Observed: 07/17/2018 Status: COMPLETED Source: [place] 2:18 PM [place] REPOSITORY HNO ID: [id number] Author: Monalisa MasonRn) NAS Chauhan Service: Emergency Medicine Author Type: Registered Nurse Type: ED Notes Filed: 07/17/2018 2:22 PM Note Text: Dr. Elizabeth notified of pt's pain of 810. States will order medication. Awaiting order. ED PROV NOTE Observed: 07/17/2018 Status: COMPLETED Source: [place] 2:16 PM [facility] OTHER [place] REPOSITORY HNO ID: [id number] Author: Wilmer Kang DO Service: Emergency Medicine Author Type: Physician Type: ED Provider Notes Filed: 07/18/2018 4:03 PM Note Text: ED Provider Note Patient Name: Ghada Brambila SERVICE DATE: 07/17/18 History Patient presents with: Fall: see trauma narrator Patient is a 62-year-old male who presents after fall yesterday. Patient is transferred from outside hospital. Patient was working near his home on a ladder and fell off landing on his back yesterday. Patient was able to ambulate without difficulty however noted progressive back pain. Patient presented outside hospital did today for evaluation. CAT scan examination revealed findings concerning for L1 fracture and potential splenic laceration. Patient [facility] [place] . No past medical history on file. No past surgical history on file. No family history on file. Social History Social History Main Topics - Smoking status: Never Smoker - Smokeless tobacco: Current User Types: Chew - Alcohol use 0.6 oz/week 1 Cans of beer per week - Drug use: No - Sexual activity: Yes Partners: Female ALLERGIES No Known Allergies Review of Systems Constitutional: Negative for chills and fever. HENT: Negative for congestion, rhinorrhea and sore throat. Eyes: Negative for visual disturbance. Respiratory: Negative for cough and shortness of breath. Cardiovascular: Negative for chest pain. Gastrointestinal: Negative for abdominal pain, constipation, diarrhea, nausea and vomiting. Endocrine: Negative for polyuria. Genitourinary: Negative for dysuria and hematuria. Musculoskeletal: Positive for arthralgias, back pain and myalgias. Skin: Negative for rash. Neurological: Negative for weakness and numbness. Psychiatric/Behavioral: Negative for suicidal ideas. All other systems reviewed and are negative. Physical Exam BP 177/93 Pulse 78 Resp 19 SpO2 93% Physical Exam Constitutional: He is oriented to person, place, and time. He appears well-developed and well-nourished. HENT: Head: Normocephalic and atraumatic. Eyes: Pupils are equal, round, and reactive to light. Conjunctivae and EOM are normal. Right eye exhibits no discharge. Left eye exhibits no discharge. Neck: Normal range of motion. No spinous process tenderness present. No tracheal deviation present. Cardiovascular: Normal rate and regular rhythm. Exam reveals no friction rub. No murmur heard. Pulmonary/Chest: Effort normal and breath sounds normal. No respiratory distress. He has no wheezes. He has no rales. Abdominal: Soft. He exhibits no distension and no mass. There is no tenderness. There is no rebound and no guarding. Musculoskeletal: Normal range of motion. Thoracic back: He exhibits tenderness and bony tenderness. Lumbar back: He exhibits tenderness and bony tenderness. Neurological: He is alert and oriented to person, place, and time. He has normal strength. No sensory deficit. Skin: Skin is warm and dry. No rash noted. Psychiatric: He has a normal mood and affect. Judgment normal. Nursing note and vitals reviewed. Diagnostic Testing ED Labs Ordered and Reviewed - No data to display No results found for this or any previous visit. Procedures ED Course / Clinical Impression Clinical Impressions as of Jul 18 1603 Closed fracture of lumbar vertebra, unspecified fracture morphology, unspecified lumbar vertebral level, initial encounter (HCC) Course:Vital signs were reviewed. Triage records were reviewed. Medical records were reviewed. Nursing notes were reviewed and incorporated.Vital signs were reviewed. Triage records were reviewed. Medical records were reviewed. Nursing notes were reviewed and incorporated. Please see HPI, ROS, physical exam, vital signs and documentation above for full patient course and results. Briefly this is a 62 year old male presenting as Level 2 trauma with chief injuries of Lumbar spinal fracture potential splenic laceration sustained during fall off ladder yesterday. The patient's primary and secondary survey were significant for thoracic or lumbar tenderness to palpation in the midline. Acute interventions during resuscitation included 1 mg Dilaudid due to pain. Patient's work-up and evaluation from outside hospital significant for lumbar spinal fracture and potential splenic laceration. Patient with leading diagnosis of lumbar spinal fraction and potential splenic laceration. A Trauma surgery service was present during primary and secondary survey and initial assessment and ancillary study results determined patient to be admitted to surgical floor.. MDM / Disposition / Plan MDM SIGNATURE: Andi Elizabeth MD Please see separate attending physician note Andi (Res) MD Glenn Resident 07/17/18 1810 Wilmer Kang DO 07/18/18 1603 ED PROV NOTE Observed: 07/17/2018 Status: COMPLETED Source: [place] 2:16 PM CLINIC OTHER CAMPUS REPOSITORY [facility] ID: [id number] Author: Wilmer Kang DO Service: Emergency Medicine Author Type: Physician Type: ED Provider Notes Filed: 07/18/2018 3:57 PM Note Text: Attending Note I personally saw and examined the patient. I reviewed the resident's note. I agree with the resident's assessment and plan unless otherwise noted. This is a 62 year old male presenting with trauma transfer from [facility]. Patient is a 62-year-old male presenting as a transfer from [facility] after a fall 24 hours ago. Patient reportedly presented there for continued low back pain. Had CT of the head and cervical spine chest abdomen and pelvis done there. He was found to have a possible renal laceration as well as fractures of T12 and L1. There is concern about potential unstable lumbar fracture to the patient was transferred here for trauma evaluation and MRI. He did have a reported loss of consciousness at the time of the initial fall. He denies being on any anticoagulation. He denies chest pain or shortness of breath. Physical Exam: Patient's afebrile vitals saturations 93% on room air blood pressure 177/93 other vitals within normal limits HEENT PERRL, EOMI Neck nontender no bony step-off or crepitus Heart regular no murmurs rubs or gallops Lungs clear to auscultation bilaterally Chest nontender no crepitus Abdomen soft nontender good bowel sounds no guarding or rebound Back exam tender in the thoracic and lumbar spine. No crepitus Neuro awake alert oriented ?3 no focal deficits Plan care was discussed with the trauma team prior to patient transfer. On arrival patient had a trauma team level to activated. Patient being evaluated by trauma currently and then will be admitted for further management. Neurosurgery OB consult regarding his spine injury Wilmer Kang, 07/18/18 1557 ED NOTE Observed: 07/17/2018 Status: COMPLETED Source: [place] 2:14 PM [facility] REPOSITORY HNO ID: [id number] Author: Vicki MasonMedic) Clement Pollard Service: (none) Author Type: Bike Mechanic and Web Designer Developer Type: ED Notes Filed: 07/17/2018 2:14 PM Note Text: Bed: 03-ED Expected date: 07/17/18 Expected time: 1:48 PM Means of arrival: Other EMS Fire Comments: TT-transfer from [facility] ED NOTE Observed: 07/17/2018 Status: COMPLETED Source: [place] 2:10 PM [facility] REPOSITORY HNO ID: [id number] Author: Monalisa MasonRn) NAS Chauhan Service: Emergency Medicine Author Type: Registered Nurse Type: ED Notes Filed: 07/17/2018 2:11 PM Note Text: Pt log rolled to assess posterior. C/o lumbar and thoracic pain EMERGENCY DEPARTMENT Observed: 07/17/2018 Status: F Source: [place] SUMMARY 12:43 PM [facility] REPOSITORY [facility] Medical Records Department [address] [place] [address] Emergency Department Summary 07/17/18 1239 MR#: [id number] Acct: [id number] Name: GHADA BRAMBILA Rep #: [id number] : 1955 62 From: Rosales Rivera MD PCP: Care Physician, No Primary Status: REG ER - ER Visit Summary Date of Service: 07/17/18 Chief Complaint: Fall History of Present Illness: The patient is a 62 M who presents after a fall. Roughly 17 hours before presentation here he fell off of the first story roof. He states that he believes he slipped but does not really remember either before or after. Family member states that they found him laying flat on his back and initially unresponsive. He does admit to 4 beers yesterday. EMS was called and he refused transport. Today he complains of worsening back pain and dark urine so presented here. No urinary retention or fecal incontinence no numbness weakness or tingling in the legs. He denies any chest pain shortness of breath or anterior abdominal pain. Physical Examination: Blood pressure 172/91 vitals otherwise normal Pupils are equally round reactive to light Extra ocular motion intact Neck is nontender Heart regular rate and rhythm Lungs are clear Abdomen soft nontender nondistended Patient does have midline spinal tenderness and paraspinal tenderness of the lower thoracic and upper lumbar regions Active full range of motion 4 extremities GCS of 15 with no focal or lateralizing neurological deficits normal strength and sensation of the lower extremities with 5 out of 5 dorsiflexion, plantarflexion, extensor hallucis longus Test Results: Labs notable for white count 13.2. Coagulation studies normal. Alcohol negative. CTs of the head and C-spine chest abdomen and pelvis were obtained. These are notable for possible small bilateral pulmonary contusions and there are acute fractures of T12 through L1. There is also a likely small left renal laceration. Emergency Department Course and Treatment: The radiologist spoke to me and put in her report the details of the fractures however she was concerned for possible 3 column fracture of L1 and noted that he will need an MRI to rule out cord injury. He does not have any neurological deficits at this time. Patient was discussed with the emergency physician at [facility] and will be transferred as a trauma. The patient will be placed in spinal immobilization for transport. Although he likely a small bilateral pulmonary contusions his pulse oximetry is normal and he is hemodynamically stable. Treatment Plan: [] Disposition: Transfer Impression: Closed head injury T12 and L1 fractures Renal laceration Bilateral pulmonary contusion This note was generated with Linekong dictation software. It may contain incorrect words, spelling, and punctuation that were not noted in review of the chart prior to signing ED Disposition - Plan for ED Patient: Chief Complaint: Fall Referrals: Care Physician,No Primary [Primary Care Provider] - What to do if you have Problems For any increased pain, shortness of breath, bleeding, nausea or vomiting, chest pain, or any unexpected problems, contact your Primary Care Provider. Call [facility] ([phone]) or report to the closest Emergency Room. Call 911 if necessary. 07/17/18 1243 <Electronically signed by Rosales Rivera MD> Date Rosales Rivera MD Cosigner Signature (If Indicated): Date CC: No Primary Care Physician CBC W/DIFF, AUTOMATED Collected: 07/17/2018 Status: F Source: [place] 10:25 AM [facility] REPOSITORY TYPE CODE TESTS RESULT OUT OF RANGE REFERENCE UNITS LAB L100.1000 4.4-11.0 K/mm3 High WBC 13.2 LAB L100.1200 4.6-6.2 M/mm3 Normal RBC 4.81 LAB L100.1300 13.0-16.5 g/dl Normal HGB 14.8 LAB L100.1400 40-54 % Normal HCT 44.2 LAB L100.1500 80-94 fL Normal MCV 91.9 LAB L100.1600 27.0-32.0 pg Normal MCH 30.8 LAB L100.1700 32-36 g/gl Normal MCHC 33.5 LAB L100.1810 11.6-14.6 % Normal RDW CV 13.8 LAB L100.1820 35.1-43.9 fl High RDW SD 45.8 LAB L100.1900 150-450 K/mm3 Normal PLT 236 LAB L100.2000 6.2-12.0 fl Normal MPV 9.1 LAB L100.2100 47-70 % High NEUT% 82.4 LAB L100.2200 19-41 % Low LY% 6.2 LAB L100.2300 0-10 % High MONO% 10.1 LAB L100.2400 0-5 % Normal EO% 0.4 LAB L100.2500 0-1 % Normal BASO% 0.1 LAB L100.2550 0.0-0.9 % Normal IM GRAN % 0.800 Result Comment: IG% - Immature Granulocytes (promyelocytes, myelocytes and metamyelocytes) > 1% indicates that a LEFT SHIFT is Present. LAB L100.2620 2.0-7.7 X10 3/uL High Absolute Neut 10.9 LAB L100.2720 0.83-4.51 X10 3/ul Low Absolute Lymph 0.82 Performed By: #### L100.0100 #### [facility] [address] [place], [place], [address] PROTHROMBIN TIME W/INR Collected: 07/17/2018 Status: F Source: [place] 10:25 AM [facility] REPOSITORY TYPE CODE TESTS RESULT OUT OF RANGE REFERENCE UNITS LAB L300.4150 11.7-14.9 SECONDS Normal PROTIME 13.3 LAB L300.4200 Normal INR 1.0 Performed By: #### L300.3900 #### [facility] [address] [place], [address] COMPREHENSIVE METABOLIC Collected: 07/17/2018 Status: F Source: [facility] 10:25 AM [facility] REPOSITORY TYPE CODE TESTS RESULT OUT OF RANGE REFERENCE UNITS LAB L501.0100 74-106 mg/dL High GLU 112 Result Comment: Fasting Glucose result from 100 to 125 mg/dL suggests IMPAIRED HOMEOSTASIS per A.D.A. criteria. Please note revised GLUCOSE reference range effective 2017. LAB L501.1000 7-18 mg/dL Normal BUN 15 LAB L501.1100 0.70-1.30 mg/dL Normal CREAT,SERUM 0.95 Result Comment: The validity of the calculated GFR AND GFRAA in patients over 70 years has not been determined. Clinical correlation is essential. LAB L501.1110 >60 mL/min Normal EST GFR 86 Result Comment: Non- GFR Calc LAB L501.1115 >60 mL/min Normal EST GFR - AA 104 Result Comment: GFR Calc LAB L501.1255 ml/min Normal Estimated CRCL 80.00 LAB L501.1300 10-20 RATIO Normal BUN/CRE 15.8 LAB L501.1500 6.4-8. g/dL Normal 2 T PROT 7.4 LAB L501.1800 3.2-5. g/dL Normal 0 ALB 3.8 LAB L501.1950 2.2-4. g/dL Normal 2 GLOB 3.6 LAB L501.2000 0.9-2. RATIO Normal 4 A/G 1.1 LAB L501.2200 8.5-10 mg/dL Normal .1 CA 8.8 LAB L501.4100 15-37 U/L Normal AST 34 LAB L501.4305 45-117 U/L Normal ALK P 96 LAB L501.4405 16-61 U/L Normal ALT 51 LAB L501.4600 0.20-1 mg/dL Normal .00 T BILI 0.70 LAB L501.5300 136-14 mmol/L Normal 5 NA 144 LAB L501.5600 3.5-5. mmol/L Normal 1 K 4.2 LAB L501.5900 98-107 mmol/L High CL 109 LAB L501.6100 21.0-3 mmol/L Normal 2.0 CO2 29.0 LAB L501.6200 5-15 Normal GAP 6 Performed By: #### L500.4050 #### [facility] [address] [place], [address] ALCOHOL, BLOOD Collected: 07/17/2018 Status: F Source: [place] ([facility])-SERUM 10:25 AM [facility] REPOSITORY TYPE CODE TESTS RESULT OUT OF RANGE REFERENCE UNITS LAB L501.9100 mg/dL Normal SERUM < 3.0 ETOH Result Comment: The serum:whole blood ethanol ratio is approximately 1.14 and varies slightly with hematocrit. Medical Alcohol reference interval and critical value in non-tolerant individuals; 50 - 100 Impairment 100 Intoxication 100 - 250 Severe Poisoning 250 - 400 Deep/possible fatal coma Performed By: #### L501.9100 #### [facility] [address] [place], [address] SPINE CERVICAL Observed: 07/17/2018 Status: F Source: [place] WITHOUT CONTRAS 9:41 AM [facility] REPOSITORY [facility] Imaging Services [address] [place] [address] Spine Cervical without Contras MR#: [id number] Acct: [id number] Name: GHADA BRAMBILA Rep #: [id number] : 1955 M 62 From: Zackary Mendieta MD PCP: Care Physician, No Primary Status: REG ER Study: Spine Cervical without Contras Date of Exam: 07/17/18 Exam# [id number] Ordering Dr: Rosales Rivera MD STUDY: CT CERVICAL SPINE WITHOUT CONTRAST REASON FOR EXAM: Male, 62 years old. Injury RADIATION DOSAGE (If Supplied By Facility): CTDIvol = ( 23.57 ) mGy, DLP = ( 407.56 ) mGycm TECHNIQUE: High resolution transaxial imaging was performed without contrast material. Sagittal and coronal images were reconstructed. Individualized dose optimization techniques were used for this CT. COMPARISON: None FINDINGS: Normal craniovertebral junction. Normal anterior atlantoaxial articulation. Normal odontoid process. Normal cervical lordosis. Normal vertebral bodies and posterior osseous elements. C2-3: Normal endplates. Normal disc height and morphology. Normal central canal and intervertebral neuroforamina. 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 C4-5: Normal endplates. Normal disc height and morphology. Normal central canal and intervertebral neuroforamina. C5-6: Normal endplates. Normal disc height and morphology. Normal central canal and intervertebral neuroforamina. C6-7: There is loss of disc space height with mild endplate spondylosis (image 30/57 sagittal recon). C7-T1: Normal endplates. Normal disc height and morphology. Normal central canal and intervertebral neuroforamina. Normal visualized soft tissue structures. CT/Spine Cervical without Contras IMPRESSION: No fracture No disc herniation or spinal stenosis Electronically Signed: Zackary Mendieta MD at 11:25 EDT Tel , Service support , CC: No Primary Care Physician; Rosales Rivera MD Sod Stripper: Signed BRAIN/HEAD WITHOUT Observed: 07/17/2018 Status: F Source: [place] CONTRAST 9:41 AM [facility] REPOSITORY [facility] Imaging Services [address] [place] [address] Brain/Head without Contrast MR#: [id number] Acct: [id number] Name: GHADA BRAMBILA Rep #: [id number] : 1955 M 62 From: Tabby Rivera MD PCP: Care Physician, No Primary Status: REG ER Study: Brain/Head without Contrast Date of Exam: 07/17/18 Exam# [id number] Ordering Dr: Rosales Rivera MD STUDY: CT BRAIN WITHOUT CONTRAST REASON FOR EXAM: Male, 62 years old. Closed head injury after falling 8 feet off a roof. RADIATION DOSAGE (If Supplied By Facility): CTDIvol = ( 44.99 ) mGy, DLP = ( 863.60 ) mGycm TECHNIQUE: Transaxial CT imaging of the brain was performed without administration of intravenous contrast material. Multiplanar reformations are submitted for interpretation. Individualized dose optimization techniques were used for this CT. COMPARISON: Prior comparison studies are not available for review at this time. FINDINGS: Normal soft tissue structures. Normal calvarium. There is mild cerebral atrophy with widening of the extra- axial spaces and ventricular dilatation. Normal white matter tracts of the cerebral hemispheres. Normal basal ganglia and thalami. Normal brainstem. Normal cerebellum. There is no intracranial hemorrhage. There is minimal atherosclerotic calcification of the intracranial arteries. There is a small left maxillary mucous retention cyst. CT/Brain/Head without Contrast IMPRESSION: No CT evidence of acute intracranial hemorrhage. Electronically Signed: Tabby Rivera MD at 11:37 EDT , Service support , CC: No Primary Care Physician; Rosales Rivera MD Sod Stripper: Signed ABDOMEN/PELVIS W IV CONT Observed: 07/17/2018 Status: F Source: [place] ONLY 9:41 AM [facility] REPOSITORY [facility] Imaging Services [address] [place] [address] Abdomen/Pelvis W IV Cont ONLY MR#: [id number] Acct: [id number] Name: GHADA BRAMBILA Rep #: [id number] : 1955 M 62 From: Tabby Rivera MD PCP: Care Physician, No Primary Status: REG ER Study: Abdomen/Pelvis W IV Cont ONLY Date of Exam: 07/17/18 Exam# [id number] Ordering Dr: Rosales Rivera MD ADDENDUM by Tabby Rivera MD on 07/17/[address]/Abdomen/Pelvis W IV Cont ONLY 07/17/18 1234 Date cc: No Primary Care Physician; Rosales Rivera MD * Signed ADDENDUM by Tabby Rivera MD on 07/17/18 at 1227 ADDENDUM On review of the images, there appears to be a undisplaced fracture of the anterior superior aspect of T12. There may be mild compression of the superior endplate of T12. There is a transitional vertebral segment. For the purposes of this dictation, the last lumbar segment is designated L6. There appears to be a nondisplaced fracture of the superior endplate of L1. There appears to be a chip fracture through an enthesophyte arising from the spinous process of L1. There is an undisplaced fracture of the right pars interarticularis of T11. There appears to be an undisplaced fracture of the right pedicle of T12. There appears to be a nondisplaced fracture of the right transverse process of L2. Electronically Signed: Tabby Rivera MD at 12:27 EDT , Service support , 07/17/18 1227 Date cc: No Primary Care Physician; Rosales Rivera MD * Signed STUDY: CT ABDOMEN AND PELVIS WITHOUT CONTRAST REASON FOR EXAM: Male, 62 years old. Abdominal pain after falling off a roof 8 feet on July 16, 2018. The patient also has back pain and dark-colored urine. RADIATION DOSAGE (If Supplied By Facility): CTDIvol = ( 18.58 ) mGy, DLP = ( 1721.13 ) mGycm TECHNIQUE: Transaxial images were obtained from the dome of the diaphragm to the symphysis pubis without oral contrast, and without intravenous contrast. Sagittal and coronal images were reconstructed. Individualized dose optimization techniques were used for this CT. COMPARISON: Prior comparison studies are not available for review at this time. FINDINGS: There is patchy bilateral basilar airspace consolidation possibly representing sequela pulmonary contusion and pulmonary hemorrhage. There may be some atelectasis as well. The visualized heart is mildly enlarged. There is decreased attenuation of the liver consistent with steatosis. Normal gallbladder and extrahepatic biliary system. There is mild splenomegaly. Spleen measures up to 14.8 cm in cephalocaudal dimension. Normal pancreas. Normal bilateral adrenal glands. Right kidney has a well-circumscribed low-attenuation lesion arising from lower pole of the right kidney measuring approximately 2.2 cm in greatest dimension. This has attenuation of approximately 14.3 Hounsfield units consistent with a simple cyst. There is a second a cyst arising from lower pole the right kidney measuring 2.6 cm in greatest dimension. There is a tiny lucency within lower pole of left kidney that may represent a tiny laceration. There is a small hiatal hernia. There is no evidence for dilated bowel, ascites or pneumoperitoneum. Small bowel has a grossly normal appearance. There also still appears to be in the ascending colon. There is gaseous distention of the colon. The descending colon is not distended which gives the appearance of thickened russ as well as the sigmoid colon. Scattered diverticula are visible. The appendix is visualized and appears normal. Normal abdominal aorta. Normal inferior vena cava. Normal retroperitoneum. Normal urinary bladder. Normal visualized prostate gland. There is an umbilical hernia containing fat. There is a left inguinal hernia containing fat. There is moderately severe multilevel thoracic and lumbar spondylosis. There are large bridging osteophytes anterior to the right sacroiliac joint with possible ankylosis. CT/Abdomen/Pelvis W IV Cont ONLY IMPRESSION: 1. Bilateral basilar airspace consolidation and/or atelectasis. Differential considerations include pulmonary contusion and pulmonary hemorrhage. 2. Questionable small left renal laceration of the lower pole. 3. Hepatic steatosis. 4. Mild splenomegaly. 5. Right-sided renal cysts. 6. Colonic diverticulosis. 7. Small hiatal hernia. Electronically Signed: Tabby Rivera MD at 11:48 EDT , Service support , CC: No Primary Care Physician; Rosales Rivera MD Sod Stripper: Signed CHEST WITH CONTRAST Observed: 07/17/2018 Status: F Source: [place] 9:41 AM [facility] REPOSITORY [facility] Imaging Services [facility] [place] [address] Chest WITH Contrast MR#: [id number] Acct: [id number] Name: GHADA BRAMBILA Rep #: [id number] : 1955 M 62 From: Noemi Mcknight MD PCP: Care Physician, No Primary Status: REG ER Study: Chest WITH Contrast Date of Exam: 07/17/18 Exam# [id number] Ordering Dr: Rosales Rivera MD STUDY: CT CHEST WITH CONTRAST REASON FOR EXAM: Male, 62 years old. Status post fall from 8 foot roof July 16 RADIATION DOSAGE (If Supplied By Facility): CTDIvol = ( 18.58 ) mGy, DLP = ( 1721.13 ) mGycm TECHNIQUE: Transaxial imaging was performed following intravenous administration of 100ML ml of Isovue 300 contrast material. Multiplanar coronal and sagittal images were reformatted. Individualized dose optimization techniques were used for this CT. COMPARISON: CT scan abdomen and pelvis July 17, 2018 FINDINGS: There is a small focus of right lower lobe consolidation. There is a small focus of left lower lobe atelectasis. There is no demonstrated pleural abnormality. There is mild cardiac enlargement. There is trace coronary calcification. Is a nonspecific right-sided paratracheal lymph node measuring 8.8 mm. Normal hilar regions. Normal enhanced pulmonary arteries. Normal aorta arch and descending thoracic aorta. There are multi-level degenerative changes of the thoracic spine. This study extends to the level of approximately T11. There is a well-circumscribed cystic structure within the left hepatic lobe measuring 7.5 mm. There is a small hiatal hernia. Further discussion of the CT scan of the abdomen and pelvis will be provided with a dedicated CT scan of the abdomen and pelvis performed today. There is hepatic steatosis. For Numbering purposes, There are acute fractures of T12- L1 with a transitional vertebral body at L5-S1. There is an acute fracture at the level of L1 with a fracture line seen on image #42 of the axial views coursing along the anterior aspect of the superior endplate with trace loss of height. There is a subtle suggestion of a fracture of the right pedicle on sagittal image #75. There is also a age in determinant step off within the superior aspect of the spinous process at the level of L1. In the left anterior edge of the vertebral body there is a fracture line seen in the level of T12 image #86 sagittal view compatible with a anterior wedge compression fracture. There is a subtle fracture of the right transverse process at L2. CT/Chest WITH Contrast IMPRESSION: There is a small focal right lung base consolidation consider in this setting pulmonary contusion and or potentially atelectasis or early developing infiltrates. Small focus of left lower lobe atelectasis. There is hepatic steatosis. Please refer to CT scan of the abdomen and pelvis or further discussion of the upper abdomen. For Numbering purposes, There are acute fractures of T12- L1 with a transitional vertebral body at L5-S1. There is an acute fracture at the level of L1 with a fracture line seen on image #42 of the axial views coursing along the anterior aspect of the superior endplate with trace loss of height. There is a subtle suggestion of a fracture of the right pedicle on sagittal image #75. There is also a age in determinant step off within the superior aspect of the spinous process at the level of L1. In the left anterior edge of the vertebral body there is a fracture line seen in the level of T12 image #86 sagittal view compatible with a anterior wedge compression fracture. There is a subtle fracture of the right transverse process at L2. Given that the L1 vertebral body may involve 3 columns, recommend follow-up MRI of the thoracolumbar junction to noting that the patient has a transitional type vertebral body. N.B. : The above information has been verbally conveyed by Noemi Mcknight MD to Dr. Nicole MD, on 07/17/2018 12:27:18 (ET). Electronically Signed: Noemi Mcknight MD at 12:17 EDT Tel , Service support , CC: No Primary Care Physician; Rosales Rivera MD Sod Stripper: Signed ALLERGIES ALLERGIES DATE TYPE / CODE NAME / CODE REACTION SEVERITY SOURCE 07/17/2018 Drug No Known Unknown [facility] Allergy/416 Allergies/U14834 [facility] 564563(SNOM 0388(RXNORM) Repository ED CT) Drug NO KNOWN [facility] Class/55261 ALLERGIES Other [place] 1003(SNOMED Repository CT) [id number] NO KNOWN [facility] 6(SNOMED ALLERGIES Health [facility] CT) Repository ENCOUNTERS ENCOUNTERS ADMIT/DISCHARGE ACCOUNT NUMBER ADMITTING ENCOUNTER LOCATION SOURCE CLASS 10/12/2018 [id number] Ambulatory [facility] MEDICAL Repository CENTERBuildi ng:AKXRC 10/07/2018 [id number] Ambulatory [facility] ding:RAD Repository 08/30/2018 [id number] Ambulatory [facility] ding:CT Repository 07/17/2018/07/19/20 [id number] [facility], Inpatient [address] Other [place] Repository 07/17/2018/07/19/20 [id number] [facility], Inpatient [address] MEDICAL Repository CENTERBuildi nBRoom: [id number]: 07/17/2018/07/17/20 [id number] Emergency [address] ding:ED Repository PAYERS PAYERS ENCOUNTER GUARANTOR PAYER SUBSCRIBER SOURCE 10/12/2018 GHADA BISHOPB: Primary GHADA D ROSEDOB: [facility] [id number] Insurance:[facility] [id number] [facility] [address] CHOICE PLAN PREFERRED [facility] [address]Taj: [phone]) Number: [id number] () [id number] Date: 10/07/2018 GHADA Delia [id number] Primary GHADA D ROSEDOB: [place] [address] Insurance:HEALTH [id number] [address]Srn: [phone] Number: Repository [phone] () [id number] Date:2113-57-04HJ [address] [place] [id number]: 10/07/2018 Secondary NOT GIVENUNK [facility] Insurance:SELF PAY [facility] Number: Effective Repository Date:2018-10-06 08/30/2018 GHADA Delia [id number] Primary GHADA D ROSEDOB: [place] [address] Insurance:HEALTH [id number] [address]Zvh: [phone] Number: Repository [id number] () [id number] Date:1926-43-03[address] [address]YE: 08/30/2018 Secondary NOT GIVENUNK [facility] Insurance:SELF PAY [facility] Number: Effective Repository Date:2018-08-16 07/17/2018 GHADA BISHOPB: Primary GHADA D ROSEDOB: [facility] [id number] Insurance:[facility] [id number] 51BIG CHOICE PLAN PREFERRED Repository [facility] CHOICEPolicy [address]Tym: 330) Number: [id number] () [id number] Date: 07/17/2018 GHADA Delia [id number] Primary GHADA BRAMBILADOB: [facility] [address] [address] Insurance:[facility] [id number] [facility] Number: Hospital [id number]: 330 [id number] Repository [phone] () Date:4526-01-27UD [address] [address]CR: 07/17/2018 Secondary NOT GIVENUNK Maite Insurance:[employer] [facility] Number: Effective Repository Date:2018-07-17
== END ==
DX: S22.080A Wedge compression fracture of T11-T12 vertebra, initial encounter for closed fracture (principal); S22.089A Unspecified fracture of T11-T12 vertebra, initial encounter for closed fracture; X58.XXXA Exposure to other specified factors, initial encounter; Y93.9 Activity, unspecified; Y92.9 Unspecified place or not applicable; Y99.9 Unspecified external cause status
CPT/HCPCS: 72120